=== PATIENT | female | born 1995 | race Caucasian/White ===

== ENCOUNTER 2017-12-31 09:42 | Emergency (ER) | payer MEDICAID, OTHER ==
[2017-12-31 10:59] LABS: ANION GAP 12.5; CHLORIDE,CL 105 mmol/L (101-111); SODIUM,NA 139 mmol/L (135-145)
--- NOTE | 2017-12-31 13:26 | EDM.PDOC ---
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 MISCARRIAGE Time Seen by Provider: 12/31/17 10:08 Source of Information: Reports: Patient, RN, RN Notes Reviewed History Limitations: Reports: No Limitations - History of Present Illness INITIAL COMMENTS - FREE TEXT/NARRATIVE: Patient is a 22-year-old female with possible miscarriage. On December 21 she was seen at [facility] measuring 1 week behind, 6 weeks and 6 days. On December 28 she had another ultrasound and it showed 6 weeks 6 days. She has an appointment with OB (Dr. Trammell) next Monday. She had a gush of blood at about 9:00 to 9:30 this morning. She also has mild cramping the entire . Onset: Gradual Duration: Constant Quality: Reports: Ache Severity: Mild Improves with: Reports: None Worsens with: Reports: None Associated Symptoms: Reports: No Other Symptoms - Related Data Allergies Allergy/AdvReac Type Severity Reaction Status Date / Time No Known Allergies Allergy Verified 11/06/15 10:44 Home Meds: Home Meds . 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 History: has herpes and is on valtrex Musculoskeletal History: Reports: None Neurological History: Reports: None Psychiatric History: Reports: None Endocrine/Metabolic History: Reports: None Hematologic History: Reports: None Immunologic History: Reports: Other (See Below) Other Immunologic History: has hx herpes Oncologic (Cancer) History: Reports: None Dermatologic History: Reports: None - Infectious Disease History Infectious Disease History: Reports: None - Past Surgical History Female Surgical History: Reports: None Musculoskeletal Surgical History: Reports: None Social & Family History - Tobacco Use Smoking Status *Q: Current Every Day Smoker Years of Tobacco use: 6 Packs/Tins Daily: 1 - Caffeine Use Caffeine Use: Reports: Soda, Tea - Recreational Drug Use Recreational Drug Use: No Other Recreational Drug Type: Pt denies any use of pot since she found out she was ED ROS GENERAL - Review of Systems Review Of Systems: ROS reveals no pertinent complaints other than HPI. ED EXAM - Physical Exam Exam: See Below Exam Limited By: No Limitations General Appearance: Alert, WD/WN, No Apparent Distress Eye Exam: Bilateral Eye: EOMI, Normal Inspection, PERRL Ears: Normal External Exam, Normal Canal, Hearing Grossly Normal, Normal TMs Nose: Normal Inspection, Normal Mucosa, No Blood Throat/Mouth: Normal Inspection, Normal Lips, Normal Teeth, Normal Gums, Normal Oropharynx, Normal Voice, No Airway Compromise Head: Atraumatic, Normocephalic Neck: Normal Inspection, Supple, Non-Tender, Full Range of Motion Respiratory/Chest: No Respiratory Distress, Lungs Clear, Normal Breath Sounds, No Accessory Muscle Use, Chest Non-Tender Cardiovascular: Normal Peripheral Pulses, Regular Rate, Rhythm, No Edema, No Gallop, No JVD, No Murmur, No Rub GI/Abdominal Exam: Other (minor cramping) Rectal Exam: Deferred Back Exam: Normal Inspection, Full Range of Motion, NT Extremities: Normal Inspection, Normal Range of Motion, Non-Tender, Normal Capillary Refill, No Pedal Edema Neurological: Alert, Oriented, CN II-XII Intact, Normal Cognition, Normal Gait, Normal Reflexes, No Motor/Sensory Deficits Psychiatric: Normal Affect, Normal Mood Skin Exam: Warm, Dry, Intact, Normal Color, No Rash Lymphatic: No Adenopathy Course - Vital Signs Last Recorded V/S: Last Vital Signs Temp 36.9 C 12/31/17 09:56 Pulse 106 H 12/31/17 09:56 Resp 16 12/31/17 09:56 BP 133/77 12/31/17 09:56 Pulse Ox 100 12/31/17 09:56 - Orders/Labs/Meds Orders: Active Orders 24 hr Category Date Time Status RH IMMUNE GLOBULIN [BBK] Stat Lab 12/31/17 09:58 Results RHIG WORKUP, MISCARRIAGE [BBK] Stat Lab 12/31/17 09:58 Results TYPE AND SCREEN [BBK] Stat Lab 12/31/17 09:58 Results UA W/MICROSCOPIC [URIN] Stat Lab 12/31/17 10:01 Ordered WEAK D TEST [BBK] Stat Lab 12/31/17 09:58 Results Labs: Laboratory Tests 12/31/17 12/31/17 12/31/17 Range/Units 09:58 09:58 09:58 WBC 8.0 (5.0-10.0) 10^3/uL RBC 4.20 (4.2-5.4) 10^6/uL Hgb 13.2 (12.0-16.0) g/dL Hct 39.2 (37.0-47.0) % MCV 93.3 (80-100) fL MCH 31.4 (27.0-34.0) pg MCHC 33.7 (33.0-35.0) g/dL Plt Count 292 (150-450) 10^3/uL Neut % (Auto) 56.2 (42.2-75.2) % Lymph % (Auto) 29.9 (20.5-50.1) % [place] % (Auto) 11.7 H (2-8) % Eos % (Auto) 1.7 (1.0-3.0) % Baso % (Auto) 0.5 (0.0-1.0) % Sodium 139 (135-145) mmol/L Potassium 3.5 L (3.6-5.0) mmol/L Chloride 105 (101-111) mmol/L Carbon Dioxide 25.0 (21.0-31.0) mmol/L Anion Gap 12.5 BUN 9 (7-18) mg/dL Creatinine 0.7 (0.6-1.3) mg/dL Est Cr Clr Drug Dosing 114.40 mL/min Estimated GFR (MDRD) > 60 BUN/Creatinine Ratio 12.85 Glucose 97 (74-105) mg/dL Calcium 9.3 (8.4-10.2) mg/dl Total Bilirubin 0.4 (0.2-1.0) mg/dL AST 19 (10-42) IU/L ALT 17 (10-60) IU/L Alkaline Phosphatase 72 (42-121) IU/L Total Protein 7.3 (6.7-8.2) g/dl Albumin 4.6 (3.2-5.5) g/dl Globulin 2.7 Albumin/Globulin Ratio 1.70 HCG, Quant (0-25) mIU/ml Beta HCG, Quant mIU/ml Urine Color (YELLOW) Urine Appearance (CLEAR) Urine pH (5.0-9.0) Ur Specific [place]eg[place] (1.005-1.030) Urine Protein (NEGATIVE) Urine Glucose (UA) (NEGATIVE) Urine Ketones (NEGATIVE) Urine Occult Blood (NEGATIVE) Urine Nitrite (NEGATIVE) Urine Bilirubin (NEGATIVE) Urine Urobilinogen (0.2-1.0) mg/dL Ur Leukocyte Esterase (NEGATIVE) Urine RBC /HPF Urine WBC (0-5/HPF) /HPF Ur Epithelial Cells /HPF Amorphous Sediment (0/HPF) /HPF Urine Bacteria (0-FEW/HPF) /HPF Urine Mucus /LPF Blood Type (Referred) O neg Blood Type O NEGATIVE Gel Antibody Screen Negative Rhogam Indicated Yes Blood Bank Comment Dl 12/31/17 12/31/17 Range/Units 10:01 10:01 WBC (5.0-10.0) 10^3/uL RBC (4.2-5.4) 10^6/uL Hgb (12.0-16.0) g/dL Hct (37.0-47.0) % MCV (80-100) fL MCH (27.0-34.0) pg MCHC (33.0-35.0) g/dL Plt Count (150-450) 10^3/uL Neut % (Auto) (42.2-75.2) % Lymph % (Auto) (20.5-50.1) % [place] % (Auto) (2-8) % Eos % (Auto) (1.0-3.0) % Baso % (Auto) (0.0-1.0) % Sodium (135-145) mmol/L Potassium (3.6-5.0) mmol/L Chloride (101-111) mmol/L Carbon Dioxide (21.0-31.0) mmol/L Anion Gap BUN (7-18) mg/dL Creatinine (0.6-1.3) mg/dL Est Cr Clr Drug Dosing mL/min Estimated GFR (MDRD) BUN/Creatinine Ratio Glucose (74-105) mg/dL Calcium (8.4-10.2) mg/dl Total Bilirubin (0.2-1.0) mg/dL AST (10-42) IU/L ALT (10-60) IU/L Alkaline Phosphatase (42-121) IU/L Total Protein (6.7-8.2) g/dl Albumin (3.2-5.5) g/dl Globulin Albumin/Globulin Ratio HCG, Quant > 1358 H (0-25) mIU/ml Beta HCG, Quant 00870 mIU/ml Urine Color Yellow (YELLOW) Urine Appearance Cloudy (CLEAR) Urine pH 7.0 (5.0-9.0) Ur Specific [place] 1.020 (1.005-1.030) Urine Protein Negative (NEGATIVE) Urine Glucose (UA) Negative (NEGATIVE) Urine Ketones Negative (NEGATIVE) Urine Occult Blood Moderate H (NEGATIVE) Urine Nitrite Negative (NEGATIVE) Urine Bilirubin Negative (NEGATIVE) Urine Urobilinogen 0.2 (0.2-1.0) mg/dL Ur Leukocyte Esterase Negative (NEGATIVE) Urine RBC 5-10 H /HPF Urine WBC 0-5 (0-5/HPF) /HPF Ur Epithelial Cells Many H /HPF Amorphous Sediment Many H (0/HPF) /HPF Urine Bacteria Few (0-FEW/HPF) /HPF Urine Mucus Moderate H /LPF Blood Type (Referred) Blood Type Gel Antibody Screen Rhogam Indicated Blood Bank Comment Departure - Departure Time of Disposition: 13:26 Disposition: Home, Self-Care 01 Condition: Fair Clinical Impression: Miscarriage - Discharge Information *PRESCRIPTION DRUG MONITORING PROGRAM REVIEWED*: Not Applicable *COPY OF PRESCRIPTION DRUG MONITORING REPORT IN PATIENT CL: Not Applicable Instructions: Miscarriage, [id number] Forms: ED Department Discharge Care Plan Goals: The patient was advised of the examination, lab and ultrasound results during the visit. The patient was given an injection of RhoGAM while in the ED. The patient was encouraged to contact her primary care facility on Monday morning for continued evaluation and management. If the patient has any additional symptoms or further concerns, the patient should either return to the emergency department of follow-up with her primary care facility. - My Orders Last 24 Hours: My Active Orders 12/31/17 09:58 RH IMMUNE GLOBULIN [BBK] Stat RHIG WORKUP, MISCARRIAGE [BBK] Stat TYPE AND SCREEN [BBK] Stat WEAK D TEST [BBK] Stat 12/31/17 10:01 UA W/MICROSCOPIC [URIN] Stat - Assessment/Plan Last 24 Hours: My Active Orders 12/31/17 09:58 RH IMMUNE GLOBULIN [BBK] Stat RHIG WORKUP, MISCARRIAGE [BBK] Stat TYPE AND SCREEN [BBK] Stat WEAK D TEST [BBK] Stat 12/31/17 10:01 UA W/MICROSCOPIC [URIN] Stat I have read and agree with the documentation that has been completed regarding this visit. By signing this record, I attest that the documentation was completed in my physical presence and is an accurate record of the encounter.
[2017-12-31 13:42] VITALS: BP 125/78
== END 2017-12-31 14:01 | disposition home or self-care (01) ==
LOC: DL.ED 09:42
DX: O03.9 Complete or unspecified spontaneous abortion without complication (principal); F17.210 Nicotine dependence, cigarettes, uncomplicated
CPT/HCPCS: 36415; 76817; 80053; 81001; 84702; 85025; 86850; 86900; 86901; 96372; 99284; J2790

== ENCOUNTER 2018-01-07 20:53 | Emergency (ER) | payer MEDICAID ==
[2018-01-07] MEDS ORDERED: Lactated Ringers 1,000 ML IV ONE (21:55)
[2018-01-07 22:32] LABS: ANION GAP 10.6; CHLORIDE,CL 104 mmol/L (101-111); SODIUM,NA 137 mmol/L (135-145)
--- NOTE | 2018-01-07 22:37 | EDM.PDOC ---
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 The patient was seen in the ED on this past Monday due to demise/miscarriage. The patient reports she noticed increased cramping and passing clots this afternoon. Onset: Gradual Duration: Day(s):, Constant, Getting Worse Location: Reports: Abdomen Quality: Reports: Other Severity: Moderate Improves with: Reports: None Worsens with: Reports: None - Related Data Allergies Allergy/AdvReac Type Severity Reaction Status Date / Time No Known Allergies Allergy Verified 01/07/18 21:35 Home Meds: Home Meds . 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 History: has herpes and is on valtrex Musculoskeletal History: Reports: None Neurological History: Reports: None Psychiatric History: Reports: None Endocrine/Metabolic History: Reports: None Hematologic History: Reports: None Immunologic History: Reports: Other (See Below) Other Immunologic History: has hx herpes Oncologic (Cancer) History: Reports: None Dermatologic History: Reports: None - Infectious Disease History Infectious Disease History: Reports: None - Past Surgical History Female Surgical History: Reports: None Musculoskeletal Surgical History: Reports: None Social & Family History - Caffeine Use Caffeine Use: Reports: Soda, Tea ED ROS GENERAL - Review of Systems Review Of Systems: ROS reveals no pertinent complaints other than HPI. ED EXAM, GI/ABD - Physical Exam Exam: See Below Exam Limited By: No Limitations General Appearance: Alert, WD/WN, Moderate Distress Eyes: Bilateral: Normal Appearance, EOMI Ears: Normal External Exam, Normal Canal, Hearing Grossly Normal, Normal TMs Nose: Normal Inspection, Normal Mucosa, No Blood Throat/Mouth: Normal Inspection, Normal Lips, Normal Teeth, Normal Gums, Normal Oropharynx, Normal Voice, No Airway Compromise Head: Atraumatic, Normocephalic Neck: Normal Inspection, Supple, Non-Tender, Full Range of Motion Respiratory/Chest: No Respiratory Distress, Lungs Clear, Normal Breath Sounds, No Accessory Muscle Use, Chest Non-Tender Cardiovascular: Normal Peripheral Pulses, Regular Rate, Rhythm, No Edema, No Gallop, No JVD, No Murmur, No Rub GI/Abdominal Exam: Tender (diffuse lower abdominal tenderness) (Female) Exam: Deferred Rectal (Female) Exam: Deferred Back Exam: Normal Inspection, Full Range of Motion, NT Extremities: Normal Inspection, Normal Range of Motion, Non-Tender, Normal Capillary Refill, No Pedal Edema Neurological: Alert, Oriented, CN II-XII Intact, Normal Cognition, Normal Gait, Normal Reflexes, No Motor/Sensory Deficits Psychiatric: Normal Affect, Normal Mood Skin Exam: Warm, Dry, Intact, Normal Color, No Rash Lymphatic: No Adenopathy Course - Vital Signs Last Recorded V/S: Last Vital Signs Temp 37.8 C 01/07/18 21:29 Pulse 119 H 01/07/18 21:29 Resp 16 01/07/18 21:29 BP 120/71 01/07/18 21:29 Pulse Ox 100 01/07/18 21:29 - Orders/Labs/Meds Orders: Active Orders 24 hr Category Date Time Status COMPREHENSIVE METABOLIC PN,CMP [CHEM] Urgent Lab 01/07/18 21:55 Ordered Lactated Ringers [Ringers, Lactated] 1,000 ml Med 01/07/18 21:55 Ordered IV .BOLUS Medication Orders Lactated Ringer's (Ringers, Lactated) 1,000 mls @ 999 mls/hr IV .BOLUS ONE Stop: 01/07/18 22:55 Labs: Laboratory Tests 01/07/18 Range/Units 22:01 WBC 13.8 H (5.0-10.0) 10^3/uL RBC 3.93 L (4.2-5.4) 10^6/uL Hgb 12.4 (12.0-16.0) g/dL Hct 36.8 L (37.0-47.0) % MCV 93.6 (80-100) fL MCH 31.6 (27.0-34.0) pg MCHC 33.7 (33.0-35.0) g/dL Plt Count 278 (150-450) 10^3/uL Neut % (Auto) 76.7 H (42.2-75.2) % Lymph % (Auto) 11.8 L (20.5-50.1) % [place] % (Auto) 10.5 H (2-8) % Eos % (Auto) 0.8 L (1.0-3.0) % Baso % (Auto) 0.2 (0.0-1.0) % Meds: Medications Generic Name Dose Route Start Last Admin Trade Name Freq PRN Reason Stop Dose Admin Lactated Ringer's 1,000 mls @ 999 mls/hr 01/07/18 21:55 Ringers, Lactated IV 01/07/18 22:55 .BOLUS ONE - Re-Assessments/Exams Free Text/Narrative Re-Assessment/Exam: 01/07/18 22:38 Dr. Coronel did come to the ED to evaluate the patient. Dr. Coronel discussed his examination and plan with the patient. The patient agreed to be in contact with Dr. Coronel tomorrow. Departure - Departure Time of Disposition: 22:40 Disposition: Home, Self-Care 01 Condition: Fair Clinical Impression: Miscarriage - Discharge Information *PRESCRIPTION DRUG MONITORING PROGRAM REVIEWED*: Not Applicable *COPY OF PRESCRIPTION DRUG MONITORING REPORT IN PATIENT CL: Not Applicable Instructions: Miscarriage, [id number] Care Plan Goals: The patient was advised of the examination and lab results during the visit. The patient will be in contact with Dr. Coronel tomorrow for continued evaluation and further management. If the patient has any additional symptoms or concerns, the patient should visit her primary care facility or return to the emergency department. - My Orders Last 24 Hours: My Active Orders 01/07/18 21:55 COMPREHENSIVE METABOLIC PN,CMP [CHEM] Urgent Lactated Ringers [Ringers, Lactated] 1,000 ml IV .BOLUS - Assessment/Plan Last 24 Hours: My Active Orders 01/07/18 21:55 COMPREHENSIVE METABOLIC PN,CMP [CHEM] Urgent Lactated Ringers [Ringers, Lactated] 1,000 ml IV .BOLUS
[2018-01-07 22:39] VITALS: BP 125/74
--- NOTE | 2018-01-09 17:51 | CONS ---
SERVICE DATE: 01/07/2018 HISTORY OF PRESENT ILLNESS: This patient is a 22-year-old 1, para 0 patient, who is at approximately 6 to 7 weeks gestation. I have seen her for a brief emergency room consult just before I had to go to the operating room for an emergency repeat section. She states that she already has had one early OB ultrasound approximately one week ago that unfortunately did reveal demise. She was at approximately 6 to 7 weeks gestation. She has been followed closely as an outpatient by Dr. Trammell. She did have more bleeding earlier in the evening of 01/07/2018, sometimes passing large clots. She was not definitely aware of having passed any tissue, but the clots were large and abundant. She did come to the emergency room. She denies any syncope or weakness. Denies any lightheadedness. She states that her vaginal bleeding is now definitely less and better for her. I note that her hemoglobin is 12.4 this evening. I do not see the blood type and Rh having been done apparently and we will verify that with our clinic records to see whether or not she is Rh positive or Rh negative. SOCIAL HISTORY: She does live in the [facility] and does stay with her significant other. She will be able to be with her significant other if we do let her go home this evening. PHYSICAL EXAMINATION: The vulvar exam is negative. The vaginal vault has a slight amount of old dark blood present. It appears as if the cervix has been opened slightly recently and is perhaps starting to close down. I presume that the uterus is in the mid position, slightly enlarged and nontender. There are no adnexal masses or tenderness palpated. IMPRESSION: Quite possibly the patient has had a complete spontaneous miscarriage. The patient's vital signs remained very stable. Hemoglobin is 12.4. PLAN: The patient and I have decided to follow her very closely as an outpatient and she was instructed to please contact me at once through the hospital blown film extrusion operator or to come to the emergency room over this long Labor Day weekend if she has recurrence of any heavy bleeding or passing of tissue, etc. She assures me that she will keep me closely informed on the phone, and I do have her personal cell phone number of [phone]. She also knows how to contact me through the hospital blown film extrusion operator as mentioned above. I did instruct her to please give me a progress report in the morning, which would be 01/08/2018. She assures me that she will keep in contact with me. We do need to check on her Rh status. The patient also tells me she has a future upcoming appointment with Dr. Trammell and repeat ultrasound on Monday of this coming week. I will also personally talk to Dr. Trammell about her since we do need to follow up on her. [facility] /[id number]
== END 2018-01-07 22:44 | disposition home or self-care (01) ==
LOC: DL.ED 20:53
DX: O03.9 Complete or unspecified spontaneous abortion without complication (principal)
CPT/HCPCS: 36415; 80053; 85025; 99284

== ENCOUNTER 2018-12-26 22:22 | Emergency (ER) | payer MEDICAID ==
[2018-12-26 22:30] VITALS: BP 141/97
--- NOTE | 2018-12-26 22:44 | EDM.PDOC ---
ED HPI GENERAL MEDICAL PROBLEM - General Chief Complaint: Gastrointestinal Problem Stated Complaint: PAIN IN ABD FOR COUPLE OF DAYS Time Seen by Provider: 12/26/18 22:38 Source of Information: Reports: Patient, RN, RN Notes Reviewed History Limitations: Reports: No Limitations - History of Present Illness INITIAL COMMENTS - FREE TEXT/NARRATIVE: Pt to ER with c/o LUQ pain. Patient states she was seen in the ER a few weeks ago and was dx with pleurisy. Patient states that has since resolved, but has had abdominal pain and issues. States she has had nausea and vomiting, indigestion, and LUQ pain. Patient states family hx of diverticulitis. Denies any health problems herself. Denies chances of , states she is currently having her menses. States BM has been normal for her. Onset: Gradual Duration: Constant, Getting Worse Location: Reports: Abdomen Abdomen Pain Score (Numeric/FACES): 6 - Related Data Allergies Allergy/AdvReac Type Severity Reaction Status Date / Time No Known Allergies Allergy Verified 12/26/18 22:26 Home Meds: Home Meds valACYclovir [Valtrex] 1,000 mg PO DAILY 12/18/18 [History] Past Medical History - Past Health History Medical/Surgical History: Denies Medical/Surgical History HEENT History: Reports: None Cardiovascular History: Reports: None Respiratory History: Reports: None Gastrointestinal History: Reports: None Genitourinary History: Reports: None 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: has herpes and is on valtrex Musculoskeletal History: Reports: None Neurological History: Reports: None Psychiatric History: Reports: None Endocrine/Metabolic History: Reports: None Hematologic History: Reports: None Immunologic History: Reports: Other (See Below) Other Immunologic History: has hx herpes Oncologic (Cancer) History: Reports: None Dermatologic History: Reports: None - Infectious Disease History Infectious Disease History: Reports: None - Past Surgical History Female Surgical History: Reports: None Musculoskeletal Surgical History: Reports: None Social & Family History - Family History Family Medical History: Noncontributory - Tobacco Use Smoking Status *Q: Current Every Day Smoker Years of Tobacco use: 8 Packs/Tins Daily: 1 Used Tobacco, but Quit: No - Caffeine Use Caffeine Use: Reports: None - Recreational Drug Use Recreational Drug Use: No ED ROS GENERAL - Review of Systems Review Of Systems: ROS reveals no pertinent complaints other than HPI. ED EXAM, GI/ABD - Physical Exam Exam: See Below Exam Limited By: No Limitations General Appearance: Alert, WD/WN, No Apparent Distress Eyes: Bilateral: Normal Appearance, EOMI Ears: Normal External Exam, Hearing Grossly Normal Nose: Normal Inspection Throat/Mouth: Normal Inspection, Normal Voice, No Airway Compromise Head: Atraumatic, Normocephalic Neck: Normal Inspection, Supple, Non-Tender, Full Range of Motion Respiratory/Chest: No Respiratory Distress, Lungs Clear, Normal Breath Sounds, No Accessory Muscle Use, Chest Non-Tender Cardiovascular: Normal Peripheral Pulses, Regular Rate, Rhythm, No Edema, No Gallop, No JVD, No Murmur, No Rub GI/Abdominal Exam: Normal Bowel Sounds, Soft, No Organomegaly, No Distention, No Abnormal Bruit, No Mass, Pelvis Stable, Tender (LUQ, RUQ) (Female) Exam: Deferred Rectal (Female) Exam: Deferred Back Exam: Normal Inspection, Full Range of Motion, NT Extremities: Normal Inspection, Normal Range of Motion, Non-Tender, Normal Capillary Refill, No Pedal Edema Neurological: Alert, Oriented, CN II-XII Intact, Normal Cognition, Normal Gait, Normal Reflexes, No Motor/Sensory Deficits Psychiatric: Normal Affect, Normal Mood Skin Exam: Warm, Dry, Intact, Normal Color, No Rash Lymphatic: No Adenopathy Course - Vital Signs Last Recorded V/S: Last Vital Signs Temp 97.8 F 12/26/18 22:29 Pulse 99 12/26/18 22:29 Resp 16 12/26/18 22:29 BP 141/97 H 12/26/18 22:29 Pulse Ox 100 12/26/18 22:29 - Orders/Labs/Meds Orders: Active Orders 24 hr Category Date Time Status Peripheral IV Care [RC] . DIRECTED Care 12/26/18 22:45 Active Chest Abdomen Pelvis w Cont [CT] Urgent Exams 12/26/18 22:45 Taken Peripheral IV Insertion Adult [OM.PC] Stat Oth 12/26/18 22:44 Ordered Labs: Laboratory Tests 12/26/18 12/26/18 12/26/18 Range/Units 22:45 22:45 22:45 WBC (5.0-10.0) 10^3/uL RBC (4.2-5.4) 10^6/uL Hgb (12.0-16.0) g/dL Hct (37.0-47.0) % MCV (80-100) fL MCH (27.0-34.0) pg MCHC (33.0-35.0) g/dL Plt Count (150-450) 10^3/uL Neut % (Auto) (42.2-75.2) % Lymph % (Auto) (20.5-50.1) % [place] % (Auto) (2-8) % Eos % (Auto) (1.0-3.0) % Baso % (Auto) (0.0-1.0) % Sodium (135-145) mmol/L Potassium (3.6-5.0) mmol/L Chloride (101-111) mmol/L Carbon Dioxide (21.0-31.0) mmol/L Anion Gap BUN (7-18) mg/dL Creatinine (0.6-1.3) mg/dL Est Cr Clr Drug Dosing mL/min Estimated GFR (MDRD) BUN/Creatinine Ratio Glucose (74-105) mg/dL Calcium (8.4-10.2) mg/dl Total Bilirubin (0.2-1.0) mg/dL AST (10-42) IU/L ALT (10-60) IU/L Alkaline Phosphatase (42-121) IU/L Total Protein (6.7-8.2) g/dl Albumin (3.2-5.5) g/dl Globulin Albumin/Globulin Ratio Amylase (28-100) U/L Lipase (22-51) U/L Urine Color Yellow (YELLOW) Urine Appearance Clear (CLEAR) Urine pH 6.0 (5.0-9.0) Ur Specific Anderson <= 1.005 (1.005-1.030) Urine Protein Negative (NEGATIVE) Urine Glucose (UA) Negative (NEGATIVE) Urine Ketones Negative (NEGATIVE) Urine Occult Blood Moderate H (NEGATIVE) Urine Nitrite Negative (NEGATIVE) Urine Bilirubin Negative (NEGATIVE) Urine Urobilinogen 0.2 (0.2-1.0) mg/dL Ur Leukocyte Esterase Negative (NEGATIVE) Urine RBC 5-10 H /HPF Urine WBC 0-5 (0-5/HPF) /HPF Ur Epithelial Cells Few (NOT SEEN) /HPF Urine Bacteria Few (0-FEW/HPF) /HPF Urine HCG, Qual Negative Urine Opiates Screen Negative (NEGATIVE) Ur Oxycodone Screen Negative (NEGATIVE) Urine Methadone Screen Negative (NEGATIVE) Ur Barbiturates Screen Negative (NEGATIVE) U Tricyclic Antidepress Negative (NEGATIVE) Ur Phencyclidine Scrn Negative (NEGATIVE) Ur Amphetamine Screen Negative (NEGATIVE) U Methamphetamines Scrn Negative (NEGATIVE) Urine MDMA Screen Negative (NEGATIVE) U Benzodiazepines Scrn Negative (NEGATIVE) Urine Cocaine Screen Negative (NEGATIVE) U Marijuana (THC) Screen Negative (NEGATIVE) 12/26/18 12/26/18 Range/Units 22:49 22:49 WBC 7.5 (5.0-10.0) 10^3/uL RBC 4.87 (4.2-5.4) 10^6/uL Hgb 15.5 (12.0-16.0) g/dL Hct 45.5 (37.0-47.0) % MCV 93.4 (80-100) fL MCH 31.8 (27.0-34.0) pg MCHC 34.1 (33.0-35.0) g/dL Plt Count 294 (150-450) 10^3/uL Neut % (Auto) 46.1 (42.2-75.2) % Lymph % (Auto) 40.7 (20.5-50.1) % [place] % (Auto) 11.3 H (2-8) % Eos % (Auto) 1.5 (1.0-3.0) % Baso % (Auto) 0.4 (0.0-1.0) % Sodium 140 (135-145) mmol/L Potassium 3.8 (3.6-5.0) mmol/L Chloride 104 (101-111) mmol/L Carbon Dioxide 27.0 (21.0-31.0) mmol/L Anion Gap 12.8 BUN 11 (7-18) mg/dL Creatinine 0.9 (0.6-1.3) mg/dL Est Cr Clr Drug Dosing 94.78 mL/min Estimated GFR (MDRD) > 60 BUN/Creatinine Ratio 12.22 Glucose 98 (74-105) mg/dL Calcium 9.3 (8.4-10.2) mg/dl Total Bilirubin 0.5 (0.2-1.0) mg/dL AST 23 (10-42) IU/L ALT 16 (10-60) IU/L Alkaline Phosphatase 68 (42-121) IU/L Total Protein 8.1 (6.7-8.2) g/dl Albumin 5.0 (3.2-5.5) g/dl Globulin 3.1 Albumin/Globulin Ratio 1.61 Amylase 64 (28-100) U/L Lipase 27 (22-51) U/L Urine Color (YELLOW) Urine Appearance (CLEAR) Urine pH (5.0-9.0) Ur Specific Anderson (1.005-1.030) Urine Protein (NEGATIVE) Urine Glucose (UA) (NEGATIVE) Urine Ketones (NEGATIVE) Urine Occult Blood (NEGATIVE) Urine Nitrite (NEGATIVE) Urine Bilirubin (NEGATIVE) Urine Urobilinogen (0.2-1.0) mg/dL Ur Leukocyte Esterase (NEGATIVE) Urine RBC /HPF Urine WBC (0-5/HPF) /HPF Ur Epithelial Cells (NOT SEEN) /HPF Urine Bacteria (0-FEW/HPF) /HPF Urine HCG, Qual Urine Opiates Screen (NEGATIVE) Ur Oxycodone Screen (NEGATIVE) Urine Methadone Screen (NEGATIVE) Ur Barbiturates Screen (NEGATIVE) U Tricyclic Antidepress (NEGATIVE) Ur Phencyclidine Scrn (NEGATIVE) Ur Amphetamine Screen (NEGATIVE) U Methamphetamines Scrn (NEGATIVE) Urine MDMA Screen (NEGATIVE) U Benzodiazepines Scrn (NEGATIVE) Urine Cocaine Screen (NEGATIVE) U Marijuana (THC) Screen (NEGATIVE) Meds: Medications Discontinued Medications Generic Name Dose Route Start Last Admin Trade Name Freq PRN Reason Stop Dose Admin Iopamidol 100 ml 12/26/18 22:45 12/26/18 23:37 Isovue-300 (61%) IVPUSH 12/26/18 22:46 98 ml ONETIME ONE Administration Sodium Chloride 10 ml 12/26/18 22:45 Saline Flush FLUSH ASDIRECTED PRN Keep Vein Open - Radiology Interpretation Free Text/Narrative:: CT Chest/abdomen/pelvis with contrast: FINDINGS: Lungs: Unremarkable. No consolidation. No masses. Pleural space: Unremarkable. No pneumothorax. No pleural effusion. Heart: Unremarkable. No cardiomegaly. No pericardial effusion. Aorta: Unremarkable. No aortic aneurysm. Lymph nodes: Unremarkable. No enlarged lymph nodes. Bones/joints: Unremarkable. No acute fracture. Soft tissues: Unremarkable. Other findings: Abdominal findings reported separately. IMPRESSION: There are no acute chest findings. Thank you for allowing us to participate in the care of your patient. Dictated and Authenticated by: Fortino Nagel MD 12/26/2018 11:48 PM Central Time ([place] & [place]) FINDINGS: Liver: Normal. No mass. Gallbladder and bile ducts: Normal. No calcified stones. No ductal dilation. Pancreas: Normal. No ductal dilation. Spleen: A 9 mm isodense nodularity seen along the anterior aspect of the spleen a small splenule. Adrenals: Normal. No mass. Kidneys and ureters: Stable nonobstructing 1.8 mm calcification seen within the lower pole of the right kidney. Stomach and bowel: Normal. No obstruction. No mucosal thickening. Appendix: No evidence of appendicitis. Intraperitoneal space: Normal. No free air. No significant fluid collection. Vasculature: There are stable splenorenal varices present. Lymph nodes: Normal. No enlarged lymph nodes. Bladder: Unremarkable as visualized. Reproductive: Unremarkable as visualized. Bones/joints: No acute fracture. No dislocation. Soft tissues: Unremarkable. Other findings: Chest findings are reported separately. IMPRESSION: 1. There are no acute abdominal findings. 2. Stable 1.8 mm nonobstructing right renal calculus 3. Stable splenorenal varices. Thank you for allowing us to participate in the care of your patient. Dictated and Authenticated by: Fortino Nagel MD 12/26/2018 11:52 PM Central Time ([place] & [place]) See rad report - Re-Assessments/Exams Free Text/Narrative Re-Assessment/Exam: 12/27/18 00:[address] findings with the patient. Patient states she has an appointment in the morning with her primary care provider and will discuss findings with her as well as far as referral to specialist or further testing. Departure - Departure Time of Disposition: 00:02 Disposition: Home, Self-Care 01 Condition: Fair Clinical Impression: Splenunculi, Right kidney stone, Splenic varices - Discharge Information *PRESCRIPTION DRUG MONITORING PROGRAM REVIEWED*: No *COPY OF PRESCRIPTION DRUG MONITORING REPORT IN PATIENT CL: No Instructions: Kidney Stones, [id number] Referrals: Jasmine Nance MD [Primary Care Provider] - Forms: ED Department Discharge Additional Instructions: Establish with primary care facility Follow up with primary care facility May use over the counter omeprazole as directed for indigestion - My Orders Last 24 Hours: My Active Orders 12/26/18 22:44 Peripheral IV Insertion Adult [OM.PC] Stat 12/26/18 22:45 Peripheral IV Care [RC] . DIRECTED Chest Abdomen Pelvis w Cont [CT] Urgent - Assessment/Plan Last 24 Hours: My Active Orders 12/26/18 22:44 Peripheral IV Insertion Adult [OM.PC] Stat 12/26/18 22:45 Peripheral IV Care [RC] . DIRECTED Chest Abdomen Pelvis w Cont [CT] Urgent
[2018-12-26] MEDS ORDERED: Sodium Chloride 0.9% 10 ML Syringe FLUSH PRN (22:45)
[2018-12-26] MEDS ORDERED: Iopamidol 612 MG/ML 100 ML Bottle IVPUSH ONE (22:45)
[2018-12-26 23:16] LABS: ANION GAP 12.8; CHLORIDE,CL 104 mmol/L (101-111); SODIUM,NA 140 mmol/L (135-145)
== END 2018-12-27 00:23 | disposition home or self-care (01) ==
LOC: DL.ED 22:22
DX: N20.0 Calculus of kidney (principal); I86.8 Varicose veins of other specified sites; D73.89 Other diseases of spleen; F17.210 Nicotine dependence, cigarettes, uncomplicated
CPT/HCPCS: 36415; 71260; 74177; 80053; 80305; 81001; 81025; 82150; 83690; 85025; 99284; Q9967

== ENCOUNTER 2018-12-28 21:27 | Emergency (ER) | payer MEDICAID ==
[2018-12-28 22:26] VITALS: BP 133/81
--- NOTE | 2018-12-28 22:33 | EDM.PDOC ---
ED HPI GENERAL MEDICAL PROBLEM - General Chief Complaint: Chest Pain Stated Complaint: COUGHING UP BROWN STUFF Time Seen by Provider: 12/28/18 22:30 Source of Information: Reports: Patient History Limitations: Reports: No Limitations - History of Present Illness INITIAL COMMENTS - FREE TEXT/NARRATIVE: states been having CP issues past 2 weeks now. initially was Dx with pleurisy and got better then developed abd pain and Dx with K-stones and splenic varices. then tonight chest pain returned. was re-eval by PMD but so far nothing showing up. states does have 2 large dogs past few years. [place] and [place] exposed [place] lots of mosquitos. her dogs were Dx with Lyme dz last year. Treatments HUMAN INTELLIGENCE: Reports: Other (see below) Other Treatments HUMAN INTELLIGENCE: none Left Anterior Chest Pain Score (Numeric/FACES): 4 - Related Data Allergies Allergy/AdvReac Type Severity Reaction Status Date / Time No Known Allergies Allergy Verified 12/28/18 22:26 Home Meds: Home Meds valACYclovir [Valtrex] 1,000 mg PO DAILY 12/18/18 [History] Omeprazole Magnesium [Prilosec Otc] 20 mg PO DAILY 12/28/18 [History] Ranitidine HCl [Zantac 75] 75 mg PO BID 12/28/18 [History] Past Medical History - Past Health History Medical/Surgical History: Denies Medical/Surgical History HEENT History: Reports: None Cardiovascular History: Reports: None Respiratory History: Reports: None Gastrointestinal History: Reports: None Genitourinary History: Reports: None 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: has herpes and is on valtrex Musculoskeletal History: Reports: None Neurological History: Reports: None Psychiatric History: Reports: None Endocrine/Metabolic History: Reports: None Hematologic History: Reports: None Immunologic History: Reports: Other (See Below) Other Immunologic History: has hx herpes Oncologic (Cancer) History: Reports: None Dermatologic History: Reports: None - Infectious Disease History Infectious Disease History: Reports: None - Past Surgical History Female Surgical History: Reports: None Musculoskeletal Surgical History: Reports: None Social & Family History - Family History Family Medical History: Noncontributory - Caffeine Use Caffeine Use: Reports: None ED ROS GENERAL - Review of Systems Review Of Systems: ROS reveals no pertinent complaints other than HPI. ED EXAM, GENERAL - Physical Exam Exam: See Below Exam Limited By: No Limitations General Appearance: Alert, WD/WN, Anxious, Mild Distress Ears: Hearing Grossly Normal Throat/Mouth: Normal Voice, No Airway Compromise Head: Atraumatic Neck: Non-Tender, Full Range of Motion Respiratory/Chest: No Respiratory Distress, Lungs Clear, Normal Breath Sounds, No Accessory Muscle Use. No: Decreased Breath Sounds, Splinting Cardiovascular: Regular Rate, Rhythm GI/Abdominal: Soft, Non-Tender Neurological: Alert, Oriented, Normal Cognition, Normal Gait, No Motor/Sensory Deficits Psychiatric: Anxious Skin Exam: Warm, Dry, Normal Color Lymphatic: No Adenopathy Course - Vital Signs Last Recorded V/S: Last Vital Signs Temp 37.4 C 12/28/18 22:22 Pulse 96 12/28/18 22:22 Resp 16 12/28/18 22:22 BP 133/81 12/28/18 22:22 Pulse Ox 100 12/28/18 22:22 - Orders/Labs/Meds Orders: Active Orders 24 hr Category Date Time Status EKG 12 Lead [EKG Documentation Completion] [RC] STAT Care 12/28/18 22:00 Active Labs: Laboratory Tests 12/28/18 12/28/18 12/28/18 Range/Units 22:10 22:10 22:10 WBC 6.6 (5.0-10.0) 10^3/uL RBC 4.44 (4.2-5.4) 10^6/uL Hgb 14.1 (12.0-16.0) g/dL Hct 41.0 (37.0-47.0) % MCV 92.3 (80-100) fL MCH 31.8 (27.0-34.0) pg MCHC 34.4 (33.0-35.0) g/dL Plt Count 269 (150-450) 10^3/uL Neut % (Auto) 51.0 (42.2-75.2) % Lymph % (Auto) 37.5 (20.5-50.1) % [place] % (Auto) 10.4 H (2-8) % Eos % (Auto) 0.6 L (1.0-3.0) % Baso % (Auto) 0.5 (0.0-1.0) % D-Dimer, Quantitative < 100 (0-400) ng/mL Sodium 139 (135-145) mmol/L Potassium 3.5 L (3.6-5.0) mmol/L Chloride 106 (101-111) mmol/L Carbon Dioxide 23.0 (21.0-31.0) mmol/L Anion Gap 13.5 BUN 10 (7-18) mg/dL Creatinine 0.9 (0.6-1.3) mg/dL Est Cr Clr Drug Dosing 93.38 mL/min Estimated GFR (MDRD) > 60 BUN/Creatinine Ratio 11.11 Glucose 96 (74-105) mg/dL Lactic Acid (0.5-2.2) mmol/L Calcium 9.3 (8.4-10.2) mg/dl Total Bilirubin 0.9 (0.2-1.0) mg/dL AST 19 (10-42) IU/L ALT 13 (10-60) IU/L Alkaline Phosphatase 55 (42-121) IU/L Troponin I < 0.02 (0.00-0.02) ng/ml Total Protein 7.3 (6.7-8.2) g/dl Albumin 4.6 (3.2-5.5) g/dl Globulin 2.7 Albumin/Globulin Ratio 1.70 // Range/Units 22:10 WBC (5.0-10.0) 10^3/uL RBC (4.2-5.4) 10^6/uL Hgb (12.0-16.0) g/dL Hct (37.0-47.0) % MCV (80-100) fL MCH (27.0-34.0) pg MCHC (33.0-35.0) g/dL Plt Count (150-450) 10^3/uL Neut % (Auto) (42.2-75.2) % Lymph % (Auto) (20.5-50.1) % [place] % (Auto) (2-8) % Eos % (Auto) (1.0-3.0) % Baso % (Auto) (0.0-1.0) % D-Dimer, Quantitative (0-400) ng/mL Sodium (135-145) mmol/L Potassium (3.6-5.0) mmol/L Chloride (101-111) mmol/L Carbon Dioxide (21.0-31.0) mmol/L Anion Gap BUN (7-18) mg/dL Creatinine (0.6-1.3) mg/dL Est Cr Clr Drug Dosing mL/min Estimated GFR (MDRD) BUN/Creatinine Ratio Glucose (74-105) mg/dL Lactic Acid 0.9 (0.5-2.2) mmol/L Calcium (8.4-10.2) mg/dl Total Bilirubin (0.2-1.0) mg/dL AST (10-42) IU/L ALT (10-60) IU/L Alkaline Phosphatase (42-121) IU/L Troponin I (0.00-0.02) ng/ml Total Protein (6.7-8.2) g/dl Albumin (3.2-5.5) g/dl Globulin Albumin/Globulin Ratio - Re-Assessments/Exams Free Text/Narrative Re-Assessment/Exam: 12/28/18 22:47 results discussed with pt. Departure - Departure Time of Disposition: 22:47 Disposition: Home, Self-Care 01 Condition: Good Clinical Impression: Chest wall pain Instructions: Nonspecific Chest Pain, [id number] Forms: ED Department Discharge Additional Instructions: 1) see clinic Monday for TEST ON: TOXOPLASMOSIS, HEART WORMS, LYMES, [place] 2) recheck if there is any change or concern - My Orders Last 24 Hours: My Active Orders 12/28/18 22:00 EKG 12 Lead [EKG Documentation Completion] [RC] STAT - Assessment/Plan Last 24 Hours: My Active Orders 12/28/18 22:00 EKG 12 Lead [EKG Documentation Completion] [RC] STAT
[2018-12-28 22:34] LABS: ANION GAP 13.5; CHLORIDE,CL 106 mmol/L (101-111); SODIUM,NA 139 mmol/L (135-145)
== END 2018-12-28 22:54 | disposition home or self-care (01) ==
LOC: DL.ED 21:27
DX: R07.89 Other chest pain (principal); Z79.899 Other long term (current) drug therapy
CPT/HCPCS: 36415; 80053; 83605; 84484; 85025; 85379; 93005; 99284-25

== ENCOUNTER 2018-12-30 15:56 | Emergency (ER) | payer MEDICAID ==
[2018-12-30 16:03] VITALS: BP 139/87
[2018-12-30] MEDS ORDERED: Sodium Chloride 0.9% 1,000 ML IV ONE (16:15)
[2018-12-30 16:48] LABS: ANION GAP 15.4; CHLORIDE,CL 105 mmol/L (101-111); SODIUM,NA 137 mmol/L (135-145)
--- NOTE | 2018-12-30 17:12 | EDM.PDOC ---
Scribed by Elba Paul 12/30/18 [id number] for Delfino Owens PA ED HPI GENERAL MEDICAL PROBLEM - General Chief Complaint: General Stated Complaint: FEELS LIKE PASSING OUT Time Seen by Provider: 12/30/18 16:07 Source of Information: Reports: Patient, RN, RN Notes Reviewed History Limitations: Reports: No Limitations - History of Present Illness INITIAL COMMENTS - FREE TEXT/NARRATIVE: A 23-year-old female reports to the ED due to not being able to eat. The patient reports some lightheadedness over the past week. The patient saw Dr. Nance and was started on omeprazole and Zantac. The patient reports decrease in stomach pain, but continues to not be able to eat. The patient denies possibility of . Onset: Gradual Duration: Constant Location: Reports: Abdomen Severity: Moderate Improves with: Reports: None Worsens with: Reports: None Associated Symptoms: Reports: No Other Symptoms Abdomen Pain Score (Numeric/FACES): 5 - Related Data Allergies Allergy/AdvReac Type Severity Reaction Status Date / Time No Known Allergies Allergy Verified 12/30/18 16:00 Home Meds: Home Meds valACYclovir [Valtrex] 1,000 mg PO DAILY 12/18/18 [History] Omeprazole Magnesium [Prilosec Otc] 20 mg PO DAILY 12/28/18 [History] Ranitidine HCl [Zantac 75] 75 mg PO BID 12/28/18 [History] Past Medical History - Past Health History Medical/Surgical History: Denies Medical/Surgical History HEENT History: Reports: None Cardiovascular History: Reports: None Respiratory History: Reports: None Other Respiratory History: pleurisy Gastrointestinal History: Reports: None Other Gastrointestinal History: ?density noted on spleen - ? varicies? 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: has herpes and is on valtrex Musculoskeletal History: Reports: None Neurological History: Reports: None Psychiatric History: Reports: None Endocrine/Metabolic History: Reports: None Hematologic History: Reports: None Immunologic History: Reports: Other (See Below) Other Immunologic History: has hx herpes Oncologic (Cancer) History: Reports: None Dermatologic History: Reports: None - Infectious Disease History Infectious Disease History: Reports: None - Past Surgical History Head Surgeries/Procedures: Reports: None Female Surgical History: Reports: None Musculoskeletal Surgical History: Reports: None Social & Family History - Family History Family Medical History: Noncontributory - Tobacco Use Smoking Status *Q: Current Some Day Smoker Years of Tobacco use: 1 Packs/Tins Daily: 1 - Caffeine Use Caffeine Use: Reports: Coffee, Soda - Recreational Drug Use Recreational Drug Use: No ED ROS GENERAL - Review of Systems Review Of Systems: ROS reveals no pertinent complaints other than HPI. ED EXAM, GENERAL - Physical Exam Exam: See Below Exam Limited By: No Limitations General Appearance: Alert, WD/WN, No Apparent Distress Eye Exam: Bilateral Eye: EOMI, Normal Inspection, PERRL Ears: Normal External Exam, Normal Canal, Hearing Grossly Normal, Normal TMs Nose: Normal Inspection Throat/Mouth: Normal Inspection, Normal Lips, Normal Teeth, Normal Gums, Normal Oropharynx, Normal Voice, No Airway Compromise Head: Atraumatic, Normocephalic Neck: Normal Inspection, Supple, Non-Tender, Full Range of Motion Respiratory/Chest: No Respiratory Distress, Lungs Clear, Normal Breath Sounds, No Accessory Muscle Use, Chest Non-Tender Cardiovascular: Normal Peripheral Pulses, Regular Rate, Rhythm, No Edema, No Gallop, No JVD, No Murmur, No Rub GI/Abdominal: Normal Bowel Sounds, Soft, Non-Tender, No Organomegaly, No Distention, No Abnormal Bruit, No Mass (Female) Exam: Deferred Rectal (Female) Exam: Deferred Back Exam: Normal Inspection, Full Range of Motion, NT Extremities: Normal Inspection, Normal Range of Motion, Non-Tender, Normal Capillary Refill, No Pedal Edema Neurological: Alert, Oriented, CN II-XII Intact, Normal Cognition, Normal Gait, Normal Reflexes, No Motor/Sensory Deficits Psychiatric: Normal Affect, Normal Mood Skin Exam: Warm, Dry, Intact, Normal Color, No Rash Lymphatic: No Adenopathy Course - Vital Signs Last Recorded V/S: Last Vital Signs Temp 36.8 C 12/30/18 16:00 Pulse 98 12/30/18 16:00 Resp 18 12/30/18 16:00 BP 139/87 12/30/18 16:00 Pulse Ox 100 12/30/18 16:00 - Orders/Labs/Meds Orders: Active Orders 24 hr Category Date Time Status Sodium Chloride 0.9% [Normal Saline] 1,000 ml Med 12/30/18 16:15 Ordered IV .BOLUS Medication Orders Sodium Chloride (Normal Saline) 1,000 mls @ 999 mls/hr IV .BOLUS ONE Stop: 12/30/18 17:15 Last Admin: 12/30/18 16:24 Dose: 999 mls/hr Labs: Laboratory Tests 12/30/18 12/30/18 12/30/18 Range/Units 16:15 16:15 16:21 WBC (5.0-10.0) 10^3/uL RBC (4.2-5.4) 10^6/uL Hgb (12.0-16.0) g/dL Hct (37.0-47.0) % MCV (80-100) fL MCH (27.0-34.0) pg MCHC (33.0-35.0) g/dL Plt Count (150-450) 10^3/uL Neut % (Auto) (42.2-75.2) % Lymph % (Auto) (20.5-50.1) % [place] % (Auto) (2-8) % Eos % (Auto) (1.0-3.0) % Baso % (Auto) (0.0-1.0) % Sodium (135-145) mmol/L Potassium (3.6-5.0) mmol/L Chloride (101-111) mmol/L Carbon Dioxide (21.0-31.0) mmol/L Anion Gap BUN (7-18) mg/dL Creatinine (0.6-1.3) mg/dL Est Cr Clr Drug Dosing mL/min Estimated GFR (MDRD) BUN/Creatinine Ratio Glucose (74-105) mg/dL Calcium (8.4-10.2) mg/dl Magnesium 1.9 (1.8-2.5) mg/dL Total Bilirubin (0.2-1.0) mg/dL AST (10-42) IU/L ALT (10-60) IU/L Alkaline Phosphatase (42-121) IU/L Total Protein (6.7-8.2) g/dl Albumin (3.2-5.5) g/dl Globulin Albumin/Globulin Ratio Amylase 61 (28-100) U/L Lipase 29 (22-51) U/L Urine Color Yellow (YELLOW) Urine Appearance Clear (CLEAR) Urine pH 5.5 (5.0-9.0) Ur Specific [place] <= 1.005 (1.005-1.030) Urine Protein Negative (NEGATIVE) Urine Glucose (UA) Negative (NEGATIVE) Urine Ketones 40 H (NEGATIVE) Urine Occult Blood Trace-lysed H (NEGATIVE) Urine Nitrite Negative (NEGATIVE) Urine Bilirubin Negative (NEGATIVE) Urine Urobilinogen 0.2 (0.2-1.0) mg/dL Ur Leukocyte Esterase Negative (NEGATIVE) Urine RBC 0-5 /HPF Urine WBC 0-5 (0-5/HPF) /HPF Ur Epithelial Cells Few (NOT SEEN) /HPF Urine Bacteria Few (0-FEW/HPF) /HPF Urine Opiates Screen Negative (NEGATIVE) Ur Oxycodone Screen Negative (NEGATIVE) Urine Methadone Screen Negative (NEGATIVE) Ur Barbiturates Screen Negative (NEGATIVE) U Tricyclic Antidepress Negative (NEGATIVE) Ur Phencyclidine Scrn Negative (NEGATIVE) Ur Amphetamine Screen Negative (NEGATIVE) U Methamphetamines Scrn Positive H (NEGATIVE) Urine MDMA Screen Negative (NEGATIVE) U Benzodiazepines Scrn Negative (NEGATIVE) Urine Cocaine Screen Negative (NEGATIVE) U Marijuana (THC) Screen Negative (NEGATIVE) 12/30/18 12/30/18 Range/Units 16:21 16:21 WBC 10.9 H (5.0-10.0) 10^3/uL RBC 4.80 (4.2-5.4) 10^6/uL Hgb 15.2 (12.0-16.0) g/dL Hct 44.6 (37.0-47.0) % MCV 92.9 (80-100) fL MCH 31.7 (27.0-34.0) pg MCHC 34.1 (33.0-35.0) g/dL Plt Count 258 (150-450) 10^3/uL Neut % (Auto) 79.1 H (42.2-75.2) % Lymph % (Auto) 12.9 L (20.5-50.1) % [place] % (Auto) 7.6 (2-8) % Eos % (Auto) 0.2 L (1.0-3.0) % Baso % (Auto) 0.2 (0.0-1.0) % Sodium 137 (135-145) mmol/L Potassium 3.4 L (3.6-5.0) mmol/L Chloride 105 (101-111) mmol/L Carbon Dioxide 20.0 L (21.0-31.0) mmol/L Anion Gap 15.4 BUN 13 (7-18) mg/dL Creatinine 0.9 (0.6-1.3) mg/dL Est Cr Clr Drug Dosing 91.27 mL/min Estimated GFR (MDRD) > 60 BUN/Creatinine Ratio 14.44 Glucose 132 H (74-105) mg/dL Calcium 9.1 (8.4-10.2) mg/dl Magnesium (1.8-2.5) mg/dL Total Bilirubin 1.1 H (0.2-1.0) mg/dL AST 24 (10-42) IU/L ALT 15 (10-60) IU/L Alkaline Phosphatase 54 (42-121) IU/L Total Protein 7.5 (6.7-8.2) g/dl Albumin 4.8 (3.2-5.5) g/dl Globulin 2.7 Albumin/Globulin Ratio 1.78 Amylase (28-100) U/L Lipase (22-51) U/L Urine Color (YELLOW) Urine Appearance (CLEAR) Urine pH (5.0-9.0) Ur Specific [place] (1.005-1.030) Urine Protein (NEGATIVE) Urine Glucose (UA) (NEGATIVE) Urine Ketones (NEGATIVE) Urine Occult Blood (NEGATIVE) Urine Nitrite (NEGATIVE) Urine Bilirubin (NEGATIVE) Urine Urobilinogen (0.2-1.0) mg/dL Ur Leukocyte Esterase (NEGATIVE) Urine RBC /HPF Urine WBC (0-5/HPF) /HPF Ur Epithelial Cells (NOT SEEN) /HPF Urine Bacteria (0-FEW/HPF) /HPF Urine Opiates Screen (NEGATIVE) Ur Oxycodone Screen (NEGATIVE) Urine Methadone Screen (NEGATIVE) Ur Barbiturates Screen (NEGATIVE) U Tricyclic Antidepress (NEGATIVE) Ur Phencyclidine Scrn (NEGATIVE) Ur Amphetamine Screen (NEGATIVE) U Methamphetamines Scrn (NEGATIVE) Urine MDMA Screen (NEGATIVE) U Benzodiazepines Scrn (NEGATIVE) Urine Cocaine Screen (NEGATIVE) U Marijuana (THC) Screen (NEGATIVE) Meds: Medications Generic Name Dose Route Start Last Admin Trade Name Freq PRN Reason Stop Dose Admin Sodium Chloride 1,000 mls @ 999 mls/hr 12/30/18 16:15 12/30/18 16:24 Normal Saline IV 08/25/19 17:15 999 mls/hr .BOLUS ONE Administration Departure - Departure Time of Disposition: 17:09 Disposition: Home, Self-Care 01 Condition: Fair Clinical Impression: Diffuse abdominal pain - Discharge Information *PRESCRIPTION DRUG MONITORING PROGRAM REVIEWED*: Not Applicable *COPY OF PRESCRIPTION DRUG MONITORING REPORT IN PATIENT CL: Not Applicable Instructions: Abdominal Pain, Adult, [place] Forms: ED Department Discharge Care Plan Goals: The patient was advised of the examination and lab results during the visit. The patient was given a liter of IV fluids during the visit. The patient was encouraged to continue the medications previously prescribed. The patient should follow-up with her primary care facility for further evaluation ( gallbladder ultrasound or EGD) and treatment. The patient was encouraged to stick to a low fat diet with small frequent sips of fluid. If the patient has any additional symptoms or concerns, the patient should either return to the emergency department or visit her primary care facility. - My Orders Last 24 Hours: My Active Orders 12/30/18 16:15 Sodium Chloride 0.9% [Normal Saline] 1,000 ml IV .BOLUS - Assessment/Plan Last 24 Hours: My Active Orders 12/30/18 16:15 Sodium Chloride 0.9% [Normal Saline] 1,000 ml IV .BOLUS I have read and agree with the documentation that has been completed regarding this visit. By signing this record, I attest that the documentation was completed in my physical presence and is an accurate record of the encounter.
== END 2018-12-30 17:16 | disposition home or self-care (01) ==
LOC: DL.ED 15:56
DX: R10.84 Generalized abdominal pain (principal); F17.210 Nicotine dependence, cigarettes, uncomplicated; Z79.899 Other long term (current) drug therapy
CPT/HCPCS: 36415; 80053; 80305; 81001; 82150; 83690; 83735; 85025; 99284; J7030

== ENCOUNTER 2019-02-06 18:58 | Emergency (ER) | payer MEDICAID ==
[2019-02-06 19:15] VITALS: BP 123/81; PULSE 133
--- NOTE | 2019-02-06 19:53 | EDM.PDOC ---
ED HPI GENERAL MEDICAL PROBLEM - General Chief Complaint: Fever Stated Complaint: FEVER 101 PER PT, HEAD HURTS AND WEAK. Time Seen by Provider: 02/06/19 19:35 Source of Information: Reports: Patient History Limitations: Reports: No Limitations - History of Present Illness INITIAL COMMENTS - FREE TEXT/NARRATIVE: This 23 yo female patient reports to the ED with a fever, body aches, posterior neck pain (not increased with movement) and a headache. The patient reports her symptoms started yesterday. The patient reports she has not taken anything for temporary symptom relief. The patient reports she had a fever of 101 while at home. The patient reports increased dizziness and weakness while exerting herself. The patient has not attempted or been seen in the clinic. Onset Date: 02/05/19 Duration: Constant Location: Reports: Generalized Quality: Reports: Other Severity: Moderate Improves with: Reports: None Worsens with: Reports: None Context: Reports: Other Associated Symptoms: Reports: Fever/Chills, Headaches, Weakness (generalized) Treatments CAP BLOCKER: Denies: Acetaminophen, NSAIDS Frontal Headache Pain Score (Numeric/FACES): 7 - Related Data Allergies Allergy/AdvReac Type Severity Reaction Status Date / Time No Known Allergies Allergy Verified 01/21/19 00:41 Home Meds: Home Meds valACYclovir [Valtrex] 1,000 mg PO DAILY 12/18/18 [History] Omeprazole Magnesium [Prilosec Otc] 20 mg PO DAILY 12/28/18 [History] Past Medical History - Past Health History Medical/Surgical History: Denies Medical/Surgical History HEENT History: Reports: None Cardiovascular History: Reports: None Respiratory History: Reports: None Other Respiratory History: pleurisy Gastrointestinal History: Reports: None Other Gastrointestinal History: ?density noted on spleen - ? varicies? 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: has herpes and is on valtrex Musculoskeletal History: Reports: None Neurological History: Reports: None Psychiatric History: Reports: None Endocrine/Metabolic History: Reports: None Hematologic History: Reports: None Immunologic History: Reports: Other (See Below) Other Immunologic History: has hx herpes Oncologic (Cancer) History: Reports: None Dermatologic History: Reports: None - Infectious Disease History Infectious Disease History: Reports: None - Past Surgical History Head Surgeries/Procedures: Reports: None Female Surgical History: Reports: None Musculoskeletal Surgical History: Reports: None Social & Family History - Family History Family Medical History: Noncontributory - Tobacco Use Smoking Status *Q: Current Every Day Smoker Years of Tobacco use: 8 Packs/Tins Daily: 0.5 Used Tobacco, but Quit: No Second Hand Smoke Exposure: Yes - Caffeine Use Caffeine Use: Reports: None - Recreational Drug Use Recreational Drug Use: Yes Drug Use in Last 12 Months: Yes Recreational Drug Type: Reports: Marijuana/Hashish Recreational Drug Use Frequency: Rarely ED ROS GENERAL - Review of Systems Review Of Systems: ROS reveals no pertinent complaints other than HPI. ED EXAM, GENERAL - Physical Exam Exam: See Below Exam Limited By: No Limitations General Appearance: Alert, WD/WN, No Apparent Distress Eye Exam: Bilateral Eye: EOMI, Normal Inspection, PERRL Ears: Normal External Exam, Normal Canal, Hearing Grossly Normal, Normal TMs Nose: Normal Inspection, Normal Mucosa, No Blood Throat/Mouth: Normal Inspection, Normal Lips, Normal Teeth, Normal Gums, Normal Oropharynx, Normal Voice, No Airway Compromise Head: Atraumatic, Normocephalic Neck: Normal Inspection, Supple, Non-Tender, Full Range of Motion Respiratory/Chest: No Respiratory Distress, Lungs Clear, Normal Breath Sounds, No Accessory Muscle Use, Chest Non-Tender Cardiovascular: Normal Peripheral Pulses, Regular Rate, Rhythm, No Edema, No Gallop, No JVD, No Murmur, No Rub GI/Abdominal: Normal Bowel Sounds, Soft, Non-Tender, No Organomegaly, No Distention, No Abnormal Bruit, No Mass (Female) Exam: Deferred Rectal (Female) Exam: Deferred Back Exam: Normal Inspection, Full Range of Motion, NT Extremities: Normal Inspection, Normal Range of Motion, Non-Tender, Normal Capillary Refill, No Pedal Edema Neurological: Alert, Oriented, CN II-XII Intact, Normal Cognition, Normal Gait, Normal Reflexes, No Motor/Sensory Deficits Psychiatric: Normal Affect, Normal Mood Skin Exam: Warm, Dry, Intact, Normal Color, No Rash Lymphatic: No Adenopathy Course - Vital Signs Last Recorded V/S: Last Vital Signs Temp 37.4 C 02/06/19 19:13 Pulse 133 H 02/06/19 19:13 Resp 19 02/06/19 19:13 BP 123/81 02/06/19 19:13 Pulse Ox 100 02/06/19 19:13 - Orders/Labs/Meds Orders: Active Orders 24 hr Category Date Time Status CULTURE STREP A CONFIRMATION [] Stat Lab 02/06/19 19:26 Results STREP SCRN A RAPID W CULT CONF [] Stat Lab 02/06/19 19:26 Results Labs: Laboratory Tests 02/06/19 02/06/19 02/06/19 Range/Units 19:26 19:26 19:26 WBC (5.0-10.0) 10^3/uL RBC (4.2-5.4) 10^6/uL Hgb (12.0-16.0) g/dL Hct (37.0-47.0) % MCV (80-100) fL MCH (27.0-34.0) pg MCHC (33.0-35.0) g/dL Plt Count (150-450) 10^3/uL Neut % (Auto) (42.2-75.2) % Lymph % (Auto) (20.5-50.1) % [place] % (Auto) (2-8) % Eos % (Auto) (1.0-3.0) % Baso % (Auto) (0.0-1.0) % Sodium (135-145) mmol/L Potassium (3.6-5.0) mmol/L Chloride (101-111) mmol/L Carbon Dioxide (21.0-31.0) mmol/L Anion Gap BUN (7-18) mg/dL Creatinine (0.6-1.3) mg/dL Est Cr Clr Drug Dosing mL/min Estimated GFR (MDRD) BUN/Creatinine Ratio Glucose (74-105) mg/dL Calcium (8.4-10.2) mg/dl Total Bilirubin (0.2-1.0) mg/dL AST (10-42) IU/L ALT (10-60) IU/L Alkaline Phosphatase (42-121) IU/L Total Protein (6.7-8.2) g/dl Albumin (3.2-5.5) g/dl Globulin Albumin/Globulin Ratio Urine Color Yellow (YELLOW) Urine Appearance Clear (CLEAR) Urine pH 6.0 (5.0-9.0) Ur Specific [place] 1.010 (1.005-1.030) Urine Protein Negative (NEGATIVE) Urine Glucose (UA) Negative (NEGATIVE) Urine Ketones Negative (NEGATIVE) Urine Occult Blood Trace-intact H (NEGATIVE) Urine Nitrite Negative (NEGATIVE) Urine Bilirubin Negative (NEGATIVE) Urine Urobilinogen 0.2 (0.2-1.0) mg/dL Ur Leukocyte Esterase Negative (NEGATIVE) Urine RBC 0-5 /HPF Urine WBC Not seen (0-5/HPF) /HPF Ur Epithelial Cells Rare (NOT SEEN) /HPF Urine Bacteria Rare (0-FEW/HPF) /HPF Urine HCG, Qual Negative Urine Opiates Screen Negative (NEGATIVE) Ur Oxycodone Screen Negative (NEGATIVE) Urine Methadone Screen Negative (NEGATIVE) Ur Barbiturates Screen Negative (NEGATIVE) U Tricyclic Antidepress Negative (NEGATIVE) Ur Phencyclidine Scrn Negative (NEGATIVE) Ur Amphetamine Screen Negative (NEGATIVE) U Methamphetamines Scrn Negative (NEGATIVE) Urine MDMA Screen Negative (NEGATIVE) U Benzodiazepines Scrn Negative (NEGATIVE) Urine Cocaine Screen Negative (NEGATIVE) U Marijuana (THC) Screen Negative (NEGATIVE) 02/06/19 02/06/19 Range/Units 19:28 19:28 WBC 12.1 H (5.0-10.0) 10^3/uL RBC 4.69 (4.2-5.4) 10^6/uL Hgb 14.7 (12.0-16.0) g/dL Hct 42.2 (37.0-47.0) % MCV 90.0 (80-100) fL MCH 31.3 (27.0-34.0) pg MCHC 34.8 (33.0-35.0) g/dL Plt Count 233 (150-450) 10^3/uL Neut % (Auto) 81.5 H (42.2-75.2) % Lymph % (Auto) 7.9 L (20.5-50.1) % [place] % (Auto) 10.2 H (2-8) % Eos % (Auto) 0.2 L (1.0-3.0) % Baso % (Auto) 0.2 (0.0-1.0) % Sodium 137 (135-145) mmol/L Potassium 3.2 L (3.6-5.0) mmol/L Chloride 104 (101-111) mmol/L Carbon Dioxide 23.0 (21.0-31.0) mmol/L Anion Gap 13.2 BUN 9 (7-18) mg/dL Creatinine 0.8 (0.6-1.3) mg/dL Est Cr Clr Drug Dosing 100.94 mL/min Estimated GFR (MDRD) > 60 BUN/Creatinine Ratio 11.25 Glucose 151 H (74-105) mg/dL Calcium 9.3 (8.4-10.2) mg/dl Total Bilirubin 0.4 (0.2-1.0) mg/dL AST 18 (10-42) IU/L ALT 12 (10-60) IU/L Alkaline Phosphatase 62 (42-121) IU/L Total Protein 7.5 (6.7-8.2) g/dl Albumin 4.5 (3.2-5.5) g/dl Globulin 3.0 Albumin/Globulin Ratio 1.50 Urine Color (YELLOW) Urine Appearance (CLEAR) Urine pH (5.0-9.0) Ur Specific [place] (1.005-1.030) Urine Protein (NEGATIVE) Urine Glucose (UA) (NEGATIVE) Urine Ketones (NEGATIVE) Urine Occult Blood (NEGATIVE) Urine Nitrite (NEGATIVE) Urine Bilirubin (NEGATIVE) Urine Urobilinogen (0.2-1.0) mg/dL Ur Leukocyte Esterase (NEGATIVE) Urine RBC /HPF Urine WBC (0-5/HPF) /HPF Ur Epithelial Cells (NOT SEEN) /HPF Urine Bacteria (0-FEW/HPF) /HPF Urine HCG, Qual Urine Opiates Screen (NEGATIVE) Ur Oxycodone Screen (NEGATIVE) Urine Methadone Screen (NEGATIVE) Ur Barbiturates Screen (NEGATIVE) U Tricyclic Antidepress (NEGATIVE) Ur Phencyclidine Scrn (NEGATIVE) Ur Amphetamine Screen (NEGATIVE) U Methamphetamines Scrn (NEGATIVE) Urine MDMA Screen (NEGATIVE) U Benzodiazepines Scrn (NEGATIVE) Urine Cocaine Screen (NEGATIVE) U Marijuana (THC) Screen (NEGATIVE) Meds: Medications Discontinued Medications Generic Name Dose Route Start Last Admin Trade Name Freq PRN Reason Stop Dose Admin Potassium Chloride 10 meq/ 100 mls @ 100 mls/hr 02/06/19 20:12 02/06/19 20:30 Premix IV 02/06/19 21:11 100 mls/hr ONETIME ONE Administration Sodium Chloride 1,000 mls @ 999 mls/hr 02/06/19 20:12 02/06/19 20:29 Normal Saline IV 02/06/19 21:12 999 mls/hr .BOLUS ONE Administration Lidocaine HCl 50 mg 02/06/19 20:12 02/06/19 20:34 Xylocaine 1% IVPUSH 02/06/19 20:13 Not Given ONETIME ONE Lidocaine HCl 1 ml 02/06/19 20:15 02/06/19 20:32 Xylocaine-Mpf 1% INJECT 02/06/19 20:16 1 ml ONETIME ONE Administration Potassium Chloride 40 meq 02/06/19 20:20 02/06/19 20:30 Klor-Con 10 PO 02/06/19 20:21 40 meq ONETIME ONE Administration - Re-Assessments/Exams Free Text/Narrative Re-Assessment/Exam: 02/06/19 20:19 Discussed the examination and lab results with the patient during the visit. The patient was given IV Potassium and IV fluids while in the Ed. Departure - Departure Time of Disposition: 21:25 Disposition: Home, Self-Care 01 Condition: Fair Clinical Impression: Hypokalemia URI (upper respiratory infection) Qualifiers: URI type: unspecified URI Qualified Code(s): J06.9 - Acute upper respiratory infection, unspecified - Discharge Information *PRESCRIPTION DRUG MONITORING PROGRAM REVIEWED*: Not Applicable *COPY OF PRESCRIPTION DRUG MONITORING REPORT IN PATIENT CL: Not Applicable Instructions: Hypokalemia, Upper Respiratory Infection, Adult, [id number] Forms: ED Department Discharge Care Plan Goals: The patient was advised of the examination and lab results during the visit. The patient was given an IV dose of potassium, IV fluids and an oral dose of potassium. The patient was encouraged to take Tylenol as directed for temporary symptom relief. If the patient has any additional symptoms or concerns, the patient should either return to the emergency department or visit her primary care facility. - My Orders Last 24 Hours: My Active Orders 02/06/19 19:26 CULTURE STREP A CONFIRMATION [RM] Stat STREP SCRN A RAPID W CULT CONF [RM] Stat - Assessment/Plan Last 24 Hours: My Active Orders 02/06/19 19:26 CULTURE STREP A CONFIRMATION [RM] Stat STREP SCRN A RAPID W CULT CONF [RM] Stat
[2019-02-06 19:56] LABS: ANION GAP 13.2; CHLORIDE,CL 104 mmol/L (101-111); SODIUM,NA 137 mmol/L (135-145)
[2019-02-06] MEDS ORDERED: Sodium Chloride 0.9% 1,000 ML IV ONE (20:12)
[2019-02-06] MEDS ORDERED: Potassium Chloride 10 MEQ in Premix Bag 1 BAG IV ONE (20:12)
[2019-02-06] MEDS ORDERED: Lidocaine 1% 50 MG/5 ML Syringe IVPUSH ONE (20:12)
[2019-02-06] MEDS ORDERED: Lidocaine 1% 30 ML SDV INJECT ONE (20:15)
[2019-02-06] MEDS ORDERED: Potassium Chloride 10 MEQ Tab.ER PO ONE (20:20)
== END 2019-02-06 21:40 | disposition home or self-care (01) ==
LOC: DL.ED 18:58
DX: J06.9 Acute upper respiratory infection, unspecified (principal); E87.6 Hypokalemia; F17.210 Nicotine dependence, cigarettes, uncomplicated; Z79.899 Other long term (current) drug therapy
CPT/HCPCS: 36415; 80053; 80305; 81001; 81025; 85025; 87081; 87430; 87804; 96365; 99283; A9270; J2001; J3480; J7030

== ENCOUNTER 2019-04-16 06:07 | Day surgery (SDC) | payer MEDICAID ==
[2019-04-16] MEDS ORDERED: Midazolam 1 MG/ML 2 ML SDV IV ONE ×3 (06:08→07:03)
[2019-04-16] MEDS ORDERED: fentaNYL 100 MCG/2 ML SDV IV ONE ×3 (06:08→07:02)
[2019-04-16] MEDS ORDERED: fentaNYL 100 MCG/2 ML SDV ONE (06:16)
[2019-04-16] MEDS ORDERED: Midazolam 1 MG/ML 2 ML SDV ONE (06:16)
[2019-04-16] MEDS ORDERED: Sodium Chloride 0.9% 10 ML Syringe FLUSH PRN (06:22)
[2019-04-16] MEDS ORDERED: Dextrose 5%-0.45% NaCl 1,000 ML IV SCH (06:30)
[2019-04-16 10:09] VITALS: BP 97/55; PULSE 58
--- NOTE | 2019-04-16 13:22 | OR ---
DATE: 04/16/2019 PROCEDURE: Esophagogastroduodenoscopy and multiple pinch biopsies. INSTRUMENT USED: [id number] Olympus video panendoscope. PREMEDICATIONS: No oral or topical anesthesia used. Fentanyl 100 mcg intravenous, Versed 2 mg intravenous. The procedure was done under pulse oximetry, BP recording, and shelter monitor. INDICATION: The patient with persistent abdominal pain and dyspepsia, unexplained and not responsive to medical measures. Esophagogastroduodenoscopy is performed for detection of any active erosive lesions, H. pylori status to be determined, small bowel biopsies to be obtained for celiac disease if indicated, endoscopic hemostasis therapy if needed. DESCRIPTION OF PROCEDURE: The scope was passed with ease. Adequate visualization of the esophagus was made from proximal to distal areas. No upper esophageal lesions were identified. No distal esophageal stricture. No uphill or downhill esophageal varices. No Mariia-Nielsen tear. No evidence of erosive esophagitis by [place] criteria. No esophageal polyp or tumor mass identified. Z-line was seen at around 40 cm distal to the oral verge, configuration consistent with grade 1 by ZAP classification. No proximal gastric varices noted. Gastric fundus examination by retroflexion showed no polypoid lesions. No gastric ulcer, malignant mass, or vascular ectasia identified. Duodenal bulb showed no ulcer. Visualized second part of the duodenum was unremarkable. Multiple pinch biopsies, 4 in number, were taken from different areas of the second part of the duodenum and tissues were also obtained from the duodenal bulb at 9 and 12 o'clock positions and sent for any histopathologic evidence of celiac disease. Multiple pinch biopsies were also obtained from the gastric antrum and proximal body and sent for PyloriTek test for H. pylori and histopathology. No bleeding was noted from any of the visualized areas at the completion of examination. Photographs were taken of the duodenal bulb and gastric antrum, fundus, and distal esophagus. IMPRESSION: Normal study. The patient tolerated the procedure well. [facility] /[id number]
== END 2019-04-16 09:12 | disposition home or self-care (01) ==
LOC: DL.ENDO 06:07
PROVIDERS: ATTEND Internal Medicine Gastroenterology
DX: R10.13 Epigastric pain (principal); F17.210 Nicotine dependence, cigarettes, uncomplicated
CPT/HCPCS: 43239; 87077; J2250; J3010; J7042

== ENCOUNTER 2020-04-11 11:55 | Emergency (ER) | payer MEDICAID ==
[2020-04-11 12:20] VITALS: BP 149/93; PULSE 90
--- NOTE | 2020-04-11 13:30 | EDM.PDOC ---
<Mtiul Lovelace - Last Filed: 04/11/20 13:33> ED HPI GENERAL MEDICAL PROBLEM - General Chief Complaint: Chest Pain Stated Complaint: PRESSURE ON CHEST Time Seen by Provider: 04/11/20 13:10 - Related Data Allergies Allergy/AdvReac Type Severity Reaction Status Date / Time No Known Allergies Allergy Verified 04/15/19 14:35 Home Meds: Home Meds valACYclovir [Valtrex] 1,000 mg PO DAILY PRN 04/15/19 [History] Course - Re-Assessments/Exams Free Text/Narrative Re-Assessment/Exam: 04/11/20 I personally performed or re-performed the physical examination and medical decision making. I have verified all student documentation or findings, including history, physical exam and/or medical decision making. Departure - Departure Disposition: Home, Self-Care 01 Clinical Impression: Viral illness, Pleuritic chest pain Instructions: Viral Illness, Adult, Chest Wall Pain, [id number] Forms: ED Department Discharge Additional Instructions: Increase fluid intake to maintain hydration. May use OTC Tylenol and ibuprofen as directed for pain and fever. Follow-up with your PCP next week if symptoms have not improved. <RadhaAdenike L - Last Filed: 04/11/20 14:34> ED HPI GENERAL MEDICAL PROBLEM - General Source of Information: Reports: Patient, RN, RN Notes Reviewed History Limitations: Reports: No Limitations - History of Present Illness INITIAL COMMENTS - FREE TEXT/NARRATIVE: pt reports not feeling well for the past few days, hx of pleurisy. reports recent travel out of state by airplane. reports increased chest pressure today with some nausea. denies vomiting or diarrhea. LBM 12/4. denies chance of . denies fever or chills. reports occasional LUQ pain. Onset: Sudden Past Medical History - Past Health History Medical/Surgical History: Denies Medical/Surgical History HEENT History: Reports: None Cardiovascular History: Reports: None Respiratory History: Reports: None Other Respiratory History: pleurisy Gastrointestinal History: Reports: None Other Gastrointestinal History: ?density noted on spleen - ? varicies? 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 , Other (See Below) Other HUMAN RESOURCES ADMINISTRATOR History: has herpes and is on valtrex Musculoskeletal History: Reports: None Neurological History: Reports: None Psychiatric History: Reports: None Endocrine/Metabolic History: Reports: None Hematologic History: Reports: None Immunologic History: Reports: Other (See Below) Other Immunologic History: has hx herpes Oncologic (Cancer) History: Reports: None Dermatologic History: Reports: None - Infectious Disease History Infectious Disease History: Reports: Herpes - Past Surgical History Head Surgeries/Procedures: Reports: None HEENT Surgical History: Reports: None Cardiovascular Surgical History: Reports: None Respiratory Surgical History: Reports: None GI Surgical History: Reports: None Female Surgical History: Reports: None Endocrine Surgical History: Reports: None Neurological Surgical History: Reports: None Musculoskeletal Surgical History: Reports: None Oncologic Surgical History: Reports: None Dermatological Surgical History: Reports: None Social & Family History - Family History Family Medical History: No Pertinent Family History - Tobacco Use Tobacco Use Status *Q: Current Every Day Tobacco User Years of Tobacco use: 10 Packs/Tins Daily: 0.5 - Caffeine Use Caffeine Use: Reports: Coffee, Soda Other Caffeine Use: SOME COFFEE DAILY - Recreational Drug Use Recreational Drug Use: Yes Recreational Drug Type: Reports: Marijuana/Hashish ED ROS GENERAL - Review of Systems Review Of Systems: Comprehensive ROS is negative, except as noted in HPI. ED EXAM, GENERAL - Physical Exam Exam: See Below Exam Limited By: No Limitations General Appearance: Alert, WD/WN, No Apparent Distress Eye Exam: Bilateral Eye: EOMI, Normal Inspection Ears: Normal External Exam, Hearing Grossly Normal Nose: Normal Inspection Throat/Mouth: Normal Inspection Head: Atraumatic, Normocephalic Neck: Normal Inspection, Full Range of Motion Respiratory/Chest: No Respiratory Distress, Lungs Clear, Normal Breath Sounds, No Accessory Muscle Use Cardiovascular: Normal Peripheral Pulses, No Edema, No Murmur, No Rub, Tachycardia GI/Abdominal: Normal Bowel Sounds, Soft, Non-Tender (Female) Exam: Deferred Rectal (Female) Exam: Deferred Back Exam: Normal Inspection, Full Range of Motion Extremities: Normal Inspection, Normal Range of Motion, Non-Tender, No Pedal Edema, Normal Capillary Refill Neurological: Alert, Oriented, Normal Cognition, Normal Gait Psychiatric: Normal Affect Skin Exam: Warm, Pallor, Other (moist) Lymphatic: No Adenopathy Course - Vital Signs Last Recorded V/S: Last Vital Signs Temp 100.1 F 04/11/20 12:24 Pulse 90 04/11/20 12:16 Resp 18 04/11/20 12:16 BP 149/93 H 04/11/20 12:16 Pulse Ox 100 04/11/20 12:16 - Orders/Labs/Meds Orders: Active Orders 24 hr Category Date Time Status EKG Documentation Completion [RC] STAT Care 04/11/20 11:57 Active CULTURE STREP A CONFIRMATION [RM] Stat Lab 04/11/20 13:55 Results STREP SCRN A RAPID W CULT CONF [RM] Stat Lab 04/11/20 13:55 Results Isolation [COMM] Routine Oth 04/11/20 13:52 Active Labs: Laboratory Tests 04/11/20 04/11/20 04/11/20 Range/Units 12:11 13:28 13:28 WBC 7.5 (5.0-10.0) 10^3/uL RBC 4.38 (4.2-5.4) 10^6/uL Hgb 13.9 (12.0-16.0) g/dL Hct 40.7 (37.0-47.0) % MCV 92.9 (80-100) fL MCH 31.7 (27.0-34.0) pg MCHC 34.2 (33.0-35.0) g/dL Plt Count 255 (150-450) 10^3/uL Neut % (Auto) 67.1 (42.2-75.2) % Lymph % (Auto) 21.3 (20.5-50.1) % [place] % (Auto) 10.0 H (2-8) % Eos % (Auto) 1.2 (1.0-3.0) % Baso % (Auto) 0.4 (0.0-1.0) % D-Dimer, Quantitative 255 (0-400) ng/mL Sodium (136-145) mmol/L Potassium (3.5-5.1) mmol/L Chloride (98-107) mmol/L Carbon Dioxide (21-32) mmol/L Anion Gap (7-13) mEq/L BUN (7-18) mg/dL Creatinine (0.55-1.02) mg/dL Est Cr Clr Drug Dosing mL/min Estimated GFR (MDRD) BUN/Creatinine Ratio (No establ ref range) Glucose (74-99) mg/dL Calcium (8.5-10.1) mg/dL Total Bilirubin (0.2-1.0) mg/dL AST (15-37) U/L ALT (14-59) U/L Alkaline Phosphatase (46-116) U/L Troponin I (0.000-0.056) ng/mL Total Protein (6.4-8.2) g/dL Albumin (3.4-5.0) g/dL Globulin Albumin/Globulin Ratio HCG, Qual SARS-CoV-2 RNA (KELBY) Negative (NEGATIVE) 04/11/20 Range/Units 13:28 WBC (5.0-10.0) 10^3/uL RBC (4.2-5.4) 10^6/uL Hgb (12.0-16.0) g/dL Hct (37.0-47.0) % MCV (80-100) fL MCH (27.0-34.0) pg MCHC (33.0-35.0) g/dL Plt Count (150-450) 10^3/uL Neut % (Auto) (42.2-75.2) % Lymph % (Auto) (20.5-50.1) % [place] % (Auto) (2-8) % Eos % (Auto) (1.0-3.0) % Baso % (Auto) (0.0-1.0) % D-Dimer, Quantitative (0-400) ng/mL Sodium 138 (136-145) mmol/L Potassium 3.6 (3.5-5.1) mmol/L Chloride 105 (98-107) mmol/L Carbon Dioxide 26 (21-32) mmol/L Anion Gap 10.6 (7-13) mEq/L BUN 10 (7-18) mg/dL Creatinine 0.86 (0.55-1.02) mg/dL Est Cr Clr Drug Dosing 96.16 mL/min Estimated GFR (MDRD) > 60 BUN/Creatinine Ratio 11.6 (No establ ref range) Glucose 92 (74-99) mg/dL Calcium 8.7 (8.5-10.1) mg/dL Total Bilirubin 0.4 (0.2-1.0) mg/dL AST 15 (15-37) U/L ALT 25 (14-59) U/L Alkaline Phosphatase 76 (46-116) U/L Troponin I < 0.017 (0.000-0.056) ng/mL Total Protein 6.8 (6.4-8.2) g/dL Albumin 4.0 (3.4-5.0) g/dL Globulin 2.8 Albumin/Globulin Ratio 1.4 HCG, Qual Negative SARS-CoV-2 RNA (KELBY) (NEGATIVE) - Radiology Interpretation Free Text/Narrative:: PROCEDURE INFORMATION: Exam: XR Chest, 2 Views Exam date and time: 04/11/2020 1:51 PM Age: 24 years old Clinical indication: Pain; Chest pressure TECHNIQUE: Imaging protocol: XR of the chest Views: 2 views. COMPARISON: CT Chest Abdomen Pelvis w Cont 12/26/2018 11:23 PM FINDINGS: Lungs: Unremarkable. No consolidation. Pleural space: Unremarkable. No pleural effusion. No pneumothorax. Heart/Mediastinum: Unremarkable. No cardiomegaly. Bones/joints: Unremarkable. Other findings: IMPRESSION: No acute findings Thank you for allowing us to participate in the care of your patient. Dictated and Authenticated by: Fritz Shaikh MD Departure - Departure Time of Disposition: 14:32 Condition: Good Sepsis Event Note (ED) - Evaluation Sepsis Screening Result: No Definite Risk - Focused Exam Vital Signs: Vital Signs Temp Pulse Resp BP Pulse Ox 04/11/20 12:24 100.1 F 04/11/20 12:16 97 F 90 18 149/93 H 100 - My Orders Last 24 Hours: My Active Orders 04/11/20 11:57 EKG Documentation Completion [RC] STAT 04/11/20 13:52 Isolation [COMM] Routine 04/11/20 13:55 CULTURE STREP A CONFIRMATION [RM] Stat STREP SCRN A RAPID W CULT CONF [RM] Stat - Assessment/Plan Last 24 Hours: My Active Orders 04/11/20 11:57 EKG Documentation Completion [RC] STAT 04/11/20 13:52 Isolation [COMM] Routine 04/11/20 13:55 CULTURE STREP A CONFIRMATION [RM] Stat STREP SCRN A RAPID W CULT CONF [RM] Stat
[2020-04-11 13:51] LABS: ANION GAP 10.6 mEq/L (7-13); CHLORIDE,CL 105 mmol/L (98-107); SODIUM,NA 138 mmol/L (136-145)
--- NOTE | 2020-04-11 14:12 | CR ---
PROCEDURE INFORMATION: Exam: XR Chest, 2 Views Exam date and time: 04/11/2020 1:51 PM Age: 24 years old Clinical indication: Pain; Chest pressure TECHNIQUE: Imaging protocol: XR of the chest Views: 2 views. COMPARISON: CT Chest Abdomen Pelvis w Cont 12/26/2018 11:23 PM FINDINGS: Lungs: Unremarkable. No consolidation. Pleural space: Unremarkable. No pleural effusion. No pneumothorax. Heart/Mediastinum: Unremarkable. No cardiomegaly. Bones/joints: Unremarkable. Other findings: IMPRESSION: No acute findings
== END 2020-04-11 14:47 | disposition home or self-care (01) ==
LOC: DL.ED 11:55
DX: R07.81 Pleurodynia (principal); B34.9 Viral infection, unspecified; R00.0 Tachycardia, unspecified; F17.210 Nicotine dependence, cigarettes, uncomplicated; Z20.828 Contact with and (suspected) exposure to other viral communicable diseases
CPT/HCPCS: 36415; 71046; 80053; 84484; 84703; 85025; 85379; 87081; 87430; 87804; 93005; 99285-25; U0002

== ENCOUNTER 2020-10-22 12:15 | Emergency (ER) | payer MEDICAID ==
--- NOTE | 2020-10-22 12:52 | EDM.PDOC ---
ED HPI GENERAL MEDICAL PROBLEM - General Chief Complaint: Gastrointestinal Problem Stated Complaint: CAN NOT GO TO THE BATHROOM Time Seen by Provider: 10/22/20 12:40 Source of Information: Reports: Patient History Limitations: Reports: No Limitations - History of Present Illness INITIAL COMMENTS - FREE TEXT/NARRATIVE: This 25 yo female patient reports to the ED due to not being able to have a bowel movement. The patient reports she had loose bowel movements over the weekend, but has not had a bowel movement since Monday. The patient reports she did feel the need to have a bowel movement today, but tried to have a bowel movement for 2 hours at home without success. The patient reports she had some clear fluid draining (from "down there"). The patient reports she is currently 20 weeks . The patient reports she has not been having any problems with this . Onset: Today Duration: Hour(s):, Constant Location: Reports: Abdomen Quality: Reports: Pressure Severity: Moderate Improves with: Reports: None Worsens with: Reports: None Context: Reports: Other Associated Symptoms: Reports: No Other Symptoms - Related Data Allergies Allergy/AdvReac Type Severity Reaction Status Date / Time No Known Allergies Allergy Verified 10/22/20 12:29 Home Meds: Home Meds . [No Known Home Meds] 10/22/20 [History] Vit #76/Iron,Carb/Fa [Prenatabs Rx] 1 tab PO DAILY 10/22/20 [History] Past Medical History - Past Health History Medical/Surgical History: Denies Medical/Surgical History HEENT History: Reports: None Cardiovascular History: Reports: None Respiratory History: Reports: None Other Respiratory History: pleurisy Gastrointestinal History: Reports: None Other Gastrointestinal History: ?density noted on spleen - ? varicies? 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 COREBOARD INSPECTOR History: has herpes and is on valtrex Musculoskeletal History: Reports: None Neurological History: Reports: None Psychiatric History: Reports: None Endocrine/Metabolic History: Reports: None Hematologic History: Reports: None Immunologic History: Reports: Other (See Below) Other Immunologic History: has hx herpes Oncologic (Cancer) History: Reports: None Dermatologic History: Reports: None - Infectious Disease History Infectious Disease History: Reports: Herpes - Past Surgical History Head Surgeries/Procedures: Reports: None HEENT Surgical History: Reports: None Cardiovascular Surgical History: Reports: None Respiratory Surgical History: Reports: None GI Surgical History: Reports: None Female Surgical History: Reports: None Endocrine Surgical History: Reports: None Neurological Surgical History: Reports: None Musculoskeletal Surgical History: Reports: None Oncologic Surgical History: Reports: None Dermatological Surgical History: Reports: None Social & Family History - Family History Family Medical History: No Pertinent Family History - Tobacco Use Tobacco Use Status *Q: Former Tobacco User Years of Tobacco use: 10 Packs/Tins Daily: 0.5 Used Tobacco, but Quit: No - Caffeine Use Caffeine Use: Reports: Coffee, Soda Other Caffeine Use: SOME COFFEE DAILY - Recreational Drug Use Recreational Drug Use: No ED ROS GENERAL - Review of Systems Review Of Systems: Comprehensive ROS is negative, except as noted in HPI. ED EXAM, GI/ABD - Physical Exam Exam: See Below Exam Limited By: No Limitations General Appearance: Alert, WD/WN, Mild Distress Eyes: Bilateral: Normal Appearance, EOMI Ears: Normal External Exam, Normal Canal, Hearing Grossly Normal, Normal TMs Nose: Normal Inspection, Normal Mucosa, No Blood Throat/Mouth: Normal Inspection, Normal Lips, Normal Teeth, Normal Gums, Normal Oropharynx, Normal Voice, No Airway Compromise Head: Atraumatic, Normocephalic Neck: Normal Inspection, Supple, Non-Tender, Full Range of Motion Respiratory/Chest: No Respiratory Distress, Lungs Clear, Normal Breath Sounds, No Accessory Muscle Use, Chest Non-Tender Cardiovascular: Normal Peripheral Pulses, Regular Rate, Rhythm, No Edema, No Gallop, No JVD, No Murmur, No Rub GI/Abdominal Exam: Normal Bowel Sounds, Soft, Tender (lower abdomen) (Female) Exam: Deferred Rectal (Female) Exam: Deferred Back Exam: Normal Inspection, Full Range of Motion, NT Extremities: Normal Inspection, Normal Range of Motion, Non-Tender, Normal Capillary Refill, No Pedal Edema Neurological: Alert, Oriented, CN II-XII Intact, Normal Cognition, Normal Gait, Normal Reflexes, No Motor/Sensory Deficits Psychiatric: Normal Affect, Normal Mood Skin Exam: Warm, Dry, Intact, Normal Color, No Rash Lymphatic: No Adenopathy Course - Vital Signs Last Recorded V/S: Last Vital Signs Temp 98.8 F 10/22/20 12:31 Pulse 114 H 10/22/20 12:31 Resp 16 10/22/20 12:31 BP 138/76 10/22/20 12:31 Pulse Ox 99 10/22/20 12:31 - Orders/Labs/Meds Orders: Active Orders 24 hr Category Date Time Status Enema [RC] ASDIRECTED Care 10/22/20 13:03 Ordered Labs: Laboratory Tests 10/22/20 Range/Units 12:35 Membrane Rupture Negative (NEG) - Re-Assessments/Exams Free Text/Narrative Re-Assessment/Exam: 10/22/20 13:42 The patient was given an enema with a large formed bowel movement with symptom relief. Departure - Departure Time of Disposition: 13:43 Disposition: Against Medical Advice 07 Condition: Fair Clinical Impression: Constipation Qualifiers: Constipation type: unspecified constipation type Qualified Code(s): K59.00 - Constipation, unspecified - Discharge Information *PRESCRIPTION DRUG MONITORING PROGRAM REVIEWED*: Not Applicable *COPY OF PRESCRIPTION DRUG MONITORING REPORT IN PATIENT CL: Not Applicable Instructions: Constipation, Adult, [id number] Forms: ED Department Discharge Care Plan Goals: The patient was advised of the examination and lab results during the visit. The patient did get an enema during the visit with symptom relief. The patient was encouraged to increase her oral fluid intake. If the patient has any additional symptoms or concerns, the patient should either return to the emergency department or visit her primary care facility. Sepsis Event Note (ED) - Evaluation Sepsis Screening Result: No Definite Risk - Focused Exam Vital Signs: Vital Signs Temp Pulse Resp BP Pulse Ox 10/22/20 12:31 98.8 F 114 H 16 138/76 99 - My Orders Last 24 Hours: My Active Orders 10/22/20 13:03 Enema [RC] ASDIRECTED - Assessment/Plan Last 24 Hours: My Active Orders 10/22/20 13:03 Enema [RC] ASDIRECTED
[2020-10-22 14:04] VITALS: BP 117/64; PULSE 83
== END 2020-10-22 14:00 | disposition left against medical advice (07) ==
LOC: DL.ED 12:15
DX: K59.00 Constipation, unspecified (principal); Z87.891 Personal history of nicotine dependence
CPT/HCPCS: 84112; 99282; 99283

== ENCOUNTER 2021-05-10 09:22 | Emergency (ER) | payer SELFPAY ==
[2021-05-10] MEDS ORDERED: Ondansetron 4 MG/2 ML SDV IV ONE (09:31)
[2021-05-10] MEDS ORDERED: Ketorolac 30 MG/ML SDV IVPUSH ONE (09:31)
[2021-05-10] MEDS ORDERED: Sodium Chloride 0.9% 1,000 ML IV ONE (09:31)
[2021-05-10] MEDS ORDERED: Sodium Chloride 0.9% 10 ML Syringe FLUSH PRN (09:31)
[2021-05-10] MEDS ORDERED: HYDROmorphone 1 MG/ML Syringe IVPUSH ONE (09:32)
[2021-05-10 10:03] LABS: ANION GAP 20.3 mEq/L (7-13); CHLORIDE,CL 105 mmol/L (98-107); SODIUM,NA 143 mmol/L (136-145)
--- NOTE | 2021-05-10 10:05 | EDM.PDOC ---
<Irma Roman - Last Filed: 05/10/21 11:35> ED HPI GENERAL MEDICAL PROBLEM - General Chief Complaint: Abdominal Pain Stated Complaint: SEVERE SIDE PAIN Time Seen by Provider: 05/10/21 09:40 Source of Information: Reports: Patient History Limitations: Reports: No Limitations - History of Present Illness INITIAL COMMENTS - FREE TEXT/NARRATIVE: Patient is a 25 y/o F who is 9 weeks presenting with 1 hour duration of sever right flank pain. The pain is rated a 9/10 came on abrupt - Related Data Allergies Allergy/AdvReac Type Severity Reaction Status Date / Time No Known Allergies Allergy Verified 12/02/20 03:37 Home Meds: Home Meds Vit #76/Iron,Carb/Fa [Prenatabs Rx] 1 tab PO DAILY 10/22/20 [History] Past Medical History - Past Health History Medical/Surgical History: Denies Medical/Surgical History HEENT History: Reports: None Cardiovascular History: Reports: None Respiratory History: Reports: None Other Respiratory History: pleurisy Gastrointestinal History: Reports: None Other Gastrointestinal History: ?density noted on spleen - ? varicies? 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: has herpes and is on valtrex Musculoskeletal History: Reports: None Neurological History: Reports: None Psychiatric History: Reports: None Endocrine/Metabolic History: Reports: None Hematologic History: Reports: None Immunologic History: Reports: Other (See Below) Other Immunologic History: has hx herpes Oncologic (Cancer) History: Reports: None Dermatologic History: Reports: None - Infectious Disease History Infectious Disease History: Reports: Herpes - Past Surgical History Head Surgeries/Procedures: Reports: None HEENT Surgical History: Reports: None Cardiovascular Surgical History: Reports: None Respiratory Surgical History: Reports: None GI Surgical History: Reports: None Female Surgical History: Reports: None Endocrine Surgical History: Reports: None Neurological Surgical History: Reports: None Musculoskeletal Surgical History: Reports: None Oncologic Surgical History: Reports: None Dermatological Surgical History: Reports: None Social & Family History - Family History Family Medical History: No Pertinent Family History - Caffeine Use Caffeine Use: Reports: Coffee, Soda Other Caffeine Use: SOME COFFEE DAILY Departure - Departure Time of Disposition: 11:36 Disposition: Home, Self-Care 01 Clinical Impression: Nephrolithiasis, Kidney stone on right side - Discharge Information *PRESCRIPTION DRUG MONITORING PROGRAM REVIEWED*: Not Applicable *COPY OF PRESCRIPTION DRUG MONITORING REPORT IN PATIENT CL: Not Applicable Instructions: Kidney Stones, Renal Colic Forms: ED Department Discharge Additional Instructions: Has a 4mm kidney stone. Take one 0.4 mg tablet of Flomax once a day to help excrete the stone. Take one tablet of [place] every 4-6 hours for severe pain but cannot drive while taking this medication. Take one 4 mg tablet of Zofran every 6 hours for nausea and vomiting. Should pass stone within the end of the week and will need to schedule follow-up with [facility] clinic by Monday. 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 Constipation will likely get worse due to pain medications and will need a stronger laxative to relive constipation. <Mitul Lovelace - Last Filed: 05/10/21 11:43> ED HPI GENERAL MEDICAL PROBLEM - General Source of Information: Reports: Patient, RN, RN Notes Reviewed History Limitations: Reports: No Limitations - History of Present Illness INITIAL COMMENTS - FREE TEXT/NARRATIVE: Pt presents to ER by POV with c/o sudden onset of Rt flank pain that began at approx. 0900HRS this morning. The pain is severe and radiates to the RLQ and groin. Pt states it feels similar to past kidney stone pain. Pt is 9 weeks s/p in [place]. Denies fever, diarrhea, or dysuria. Admits to constipation. Onset: Today, Sudden Duration: Constant Location: Reports: Abdomen, Back Quality: Reports: Ache, Same as Previous Episode Severity: Severe Improves with: Reports: None Worsens with: Reports: None Right Flank Pain Score (Numeric/FACES): 10 Past Medical History : 1 Para: 1 Social & Family History - Family History Family Medical History: No Pertinent Family History ED ROS GENERAL - Review of Systems Review Of Systems: Comprehensive ROS is negative, except as noted in HPI. ED EXAM, RENAL/ - Physical Exam Exam: See Below Exam Limited By: No Limitations General Appearance: Alert, WD/WN, Anxious, Moderate Distress Eye Exam: Bilateral Eye: Normal Inspection Throat/Mouth: Normal Voice, No Airway Compromise Head: Atraumatic, Normocephalic Neck: Normal Inspection Respiratory/Chest: No Respiratory Distress, Lungs Clear Cardiovascular: Regular Rate, Rhythm, No Edema GI/Abdominal: Normal Bowel Sounds, Soft, Non-Tender, No Organomegaly, No Distention, No Abnormal Bruit, No Mass Back Exam: Normal Inspection, Full Range of Motion. No: CVA Tenderness (L), CVA Tenderness (R), Vertebral Tenderness Extremities: Normal Inspection Neurological: Alert, Oriented, No Motor/Sensory Deficits Psychiatric: Anxious Skin Exam: Warm, Dry, Intact, Normal Color, No Rash Course - Vital Signs Last Recorded V/S: Last Vital Signs Temp 98.1 F 05/10/21 09:50 Pulse 68 05/10/21 09:50 Resp 16 05/10/21 09:50 BP 124/50 L 05/10/21 09:50 Pulse Ox 99 05/10/21 09:50 - Orders/Labs/Meds Orders: Active Orders 24 hr Category Date Time Status Peripheral IV Care [RC] . DIRECTED Care 05/10/21 09:31 Active Sodium Chloride 0.9% [Saline Flush] Med 05/10/21 09:31 Active 10 ml FLUSH ASDIRECTED PRN Peripheral IV Insertion Adult [OM.PC] Routine Oth 05/10/21 09:31 Ordered Medication Orders Sodium Chloride (Sodium Chloride 0.9% 10 Ml Syringe) 10 ml FLUSH ASDIRECTED PRN PRN Reason: Keep Vein Open Last Admin: 05/10/21 10:06 Dose: 10 ml Documented by: [place] Labs: Laboratory Tests 05/10/21 05/10/21 05/10/21 Range/Units 09:30 09:30 09:38 WBC 8.2 (5.0-10.0) 10^3/uL RBC 4.50 (4.2-5.4) 10^6/uL Hgb 13.9 (12.0-16.0) g/dL Hct 42.0 (37.0-47.0) % MCV 93.3 (80-100) fL MCH 30.9 (27.0-34.0) pg MCHC 33.1 (33.0-35.0) g/dL Plt Count 320 (150-450) 10^3/uL Neut % (Auto) 45.7 (42.2-75.2) % Lymph % (Auto) 38.8 (20.5-50.1) % Villalba % (Auto) 10.5 H (2-8) % Eos % (Auto) 4.6 H (1.0-3.0) % Baso % (Auto) 0.4 (0.0-1.0) % Sodium (136-145) mmol/L Potassium (3.5-5.1) mmol/L Chloride (98-107) mmol/L Carbon Dioxide (21-32) mmol/L Anion Gap (7-13) mEq/L BUN (7-18) mg/dL Creatinine (0.55-1.02) mg/dL Est Cr Clr Drug Dosing Estimated GFR (MDRD) BUN/Creatinine Ratio (No establ ref range) Glucose (70-99) mg/dL Calcium (8.5-10.1) mg/dL Total Bilirubin (0.2-1.0) mg/dL AST (15-37) U/L ALT (14-59) U/L Alkaline Phosphatase (46-116) U/L Total Protein (6.4-8.2) g/dL Albumin (3.4-5.0) g/dL Globulin Albumin/Globulin Ratio Urine Color [place] (YELLOW) Urine Appearance Cloudy (CLEAR) Urine pH 5.0 (5.0-9.0) Ur Specific [place] >= 1.030 (1.005-1.030) Urine Protein 100 H (NEGATIVE) Urine Glucose (UA) Negative (NEGATIVE) Urine Ketones 40 H (NEGATIVE) Urine Occult Blood Large H (NEGATIVE) Urine Nitrite Negative (NEGATIVE) Urine Bilirubin Small H (NEGATIVE) Urine Urobilinogen 0.2 (0.2-1.0) mg/dL Ur Leukocyte Esterase Negative (NEGATIVE) Urine RBC >100 H (0-5) /HPF Urine WBC 0-5 (0-5/HPF) /HPF Ur Epithelial Cells Moderate H (NOT SEEN) /HPF Amorphous Sediment Few (NOT SEEN) /HPF Urine Bacteria Moderate H (0-FEW/HPF) /HPF Urine Mucus Many H (NOT SEEN) /LPF Urine HCG, Qual Negative 05/10/21 Range/Units 09:38 WBC (5.0-10.0) 10^3/uL RBC (4.2-5.4) 10^6/uL Hgb (12.0-16.0) g/dL Hct (37.0-47.0) % MCV (80-100) fL MCH (27.0-34.0) pg MCHC (33.0-35.0) g/dL Plt Count (150-450) 10^3/uL Neut % (Auto) (42.2-75.2) % Lymph % (Auto) (20.5-50.1) % [place]al[place] % (Auto) (2-8) % Eos % (Auto) (1.0-3.0) % Baso % (Auto) (0.0-1.0) % Sodium 143 (136-145) mmol/L Potassium 3.3 L (3.5-5.1) mmol/L Chloride 105 (98-107) mmol/L Carbon Dioxide 21 (21-32) mmol/L Anion Gap 20.3 H (7-13) mEq/L BUN 15 (7-18) mg/dL Creatinine 0.91 (0.55-1.02) mg/dL Est Cr Clr Drug Dosing TNP Estimated GFR (MDRD) > 60 BUN/Creatinine Ratio 16.5 (No establ ref range) Glucose 112 H (70-99) mg/dL Calcium 9.3 (8.5-10.1) mg/dL Total Bilirubin 0.4 (0.2-1.0) mg/dL AST 19 (15-37) U/L ALT 36 (14-59) U/L Alkaline Phosphatase 102 (46-116) U/L Total Protein 7.2 (6.4-8.2) g/dL Albumin 4.2 (3.4-5.0) g/dL Globulin 3.0 Albumin/Globulin Ratio 1.4 Urine Color (YELLOW) Urine Appearance (CLEAR) Urine pH (5.0-9.0) Ur Specific [place] (1.005-1.030) Urine Protein (NEGATIVE) Urine Glucose (UA) (NEGATIVE) Urine Ketones (NEGATIVE) Urine Occult Blood (NEGATIVE) Urine Nitrite (NEGATIVE) Urine Bilirubin (NEGATIVE) Urine Urobilinogen (0.2-1.0) mg/dL Ur Leukocyte Esterase (NEGATIVE) Urine RBC (0-5) /HPF Urine WBC (0-5/HPF) /HPF Ur Epithelial Cells (NOT SEEN) /HPF Amorphous Sediment (NOT SEEN) /HPF Urine Bacteria (0-FEW/HPF) /HPF Urine Mucus (NOT SEEN) /LPF Urine HCG, Qual Meds: Medications Generic Name Dose Route Start Last Admin Trade Name Freq PRN Reason Stop Dose Admin Sodium Chloride 10 ml 05/10/21 09:31 05/10/21 10:06 Sodium Chloride 0.9% 10 Ml Syringe FLUSH 10 ml ASDIRECTED PRN Administration Keep Vein Open Discontinued Medications Generic Name Dose Route Start Last Admin Trade Name aLrissa PRN Reason Stop Dose Admin Hydromorphone HCl 1 mg 05/10/21 09:32 05/10/21 09:40 Hydromorphone 1 Mg/Ml Syringe IVPUSH 05/10/21 09:33 1 mg ONETIME ONE Administration Sodium Chloride 1,000 mls @ 999 mls/hr 05/10/21 09:31 05/10/21 10:05 Normal Saline IV 05/10/21 10:31 999 mls/hr .BOLUS ONE Administration Ketorolac Tromethamine 30 mg 05/10/21 09:31 05/10/21 10:01 Ketorolac 30 Mg/Ml Sdv IVPUSH 05/10/21 09:32 30 mg ONETIME ONE Administration Ondansetron HCl 4 mg 05/10/21 09:31 05/10/21 10:00 Ondansetron 4 Mg/2 Ml Sdv IV 05/10/21 09:32 4 mg ONETIME ONE Administration - Re-Assessments/Exams Free Text/Narrative Re-Assessment/Exam: 05/10/21 I personally performed or re-performed the physical examination and medical decision making. I have verified all student documentation or findings, including history, physical exam and/or medical decision making. Sepsis Event Note (ED) - Focused Exam Vital Signs: Vital Signs Temp Pulse Resp BP Pulse Ox 05/10/21 09:50 98.1 F 68 16 124/50 L 99
[2021-05-10 10:24] VITALS: BP 124/50; PULSE 68
--- NOTE | 2021-05-10 11:09 | CT ---
PROCEDURE INFORMATION: Exam: CT Abdomen And Pelvis Without Contrast Exam date and time: 05/10/2021 10:19 AM Age: 25 years old Clinical indication: Abdominal pain; Flank; Right; Prior surgery; Surgery date: 1-6 months; Patient HX: 03/2021 ; Additional info: Flank pain TECHNIQUE: Imaging protocol: Computed tomography of the abdomen and pelvis without contrast. Radiation optimization: All CT scans at this facility use at least one of these dose optimization techniques: automated exposure control; mA and/or kV adjustment per patient size (includes targeted exams where dose is matched to clinical indication); or iterative reconstruction. COMPARISON: CT Abdomen Pelvis wo Cont 04/19/2019 8:22 AM FINDINGS: Liver: Normal. No mass. Gallbladder and bile ducts: Normal. No calcified stones. No ductal dilation. Pancreas: Normal. No ductal dilation. Spleen: Normal. No splenomegaly. Adrenal glands: Normal. No mass. Kidneys and ureters: Right moderate hydronephrosis and hydroureter secondary to 4 mm distal ureteral calculus. Right multiple minute nephroliths. Stomach and bowel: Unremarkable. No obstruction. No mucosal thickening. Appendix: No evidence of appendicitis. Intraperitoneal space: Unremarkable. No free air. No significant fluid collection. Vasculature: Unremarkable. No abdominal aortic aneurysm. Lymph nodes: Unremarkable. No enlarged lymph nodes. Urinary bladder: Unremarkable as visualized. Reproductive: Unremarkable as visualized. Bones/joints: Unremarkable. No acute fracture. Soft tissues: Unremarkable. IMPRESSION: 1. Right moderate and hydroureter secondary to 4 mm ureteral calculus. 2. Right minute renal nephroliths.
== END 2021-05-10 11:58 | disposition home or self-care (01) ==
LOC: DL.ED 09:22
DX: N13.2 Hydronephrosis with renal and ureteral calculous obstruction (principal)
CPT/HCPCS: 36415; 74176; 80053; 81001; 81025; 85025; 96374; 96375; 99284; J1170; J1885; J2405; J7030

== ENCOUNTER 2022-05-28 19:01 | Emergency (ER) | payer MEDICAID, OTHER ==
[2022-05-28 19:56] VITALS: BP 146/84; PULSE 125
== END 2022-05-28 22:51 | disposition home or self-care (01) ==
LOC: DL.ED 19:01
DX: M25.562 Pain in left knee (principal); F17.210 Nicotine dependence, cigarettes, uncomplicated
CPT/HCPCS: 36415; 85379; 99283